=== PATIENT | female | born 1960 | race Caucasian/White ===

== ENCOUNTER 2017-08-14 16:10 | Emergency (ER) | payer MEDICARE, OTHER ==
[~2017-08-14] VITALS: Ht 165.1 cm; Wt 90.7 kg
[~2017-08-14 16:10] MED LIST: ACET120S PO; ALEN70 PO; APTIOM200 MG PO; ASCO500 PO; B Complex #11 EACH PO; B Complex1 EAC2 PO; BENTYL10 MG PO; BENZ100A PO; BIEST; C Complex1000 MG PO; CALCAVITDA PO; CALCIT950 PO; CHOL10002 PO; CYAN1000 PO; CYCL0.05OP BOTHEYES; CYCL10 PO; Calicum 500+D1 EACH PO; DHEA; DOCU100 PO; DULO60 PO; ERGO50000 PO; FLUO20; FLUT.05NI; Flonase 0.05% N16 GM; HYDACE10B PO; HYDACE5 PO; HYDMOR2 PO; HYOS0.375T PO; IBUP800 PO; KETO10 IM; LAMO100 PO; LAVAP17G PO; LORA10 PO; LORA10ER PO; NITR100CA PO; OXYACE5T PO; PHENY100ER; PHENY100ER PO; PHENY30ER PO; PROG; RISE35 PO; RXOXYACE PO; SOLIFENACIN 5 MG; TRAM50 PO; Treximet 85-501 EACH; Treximet 85-501 EACH PO; Triderm30 GM TOP; Triderm30 GM TP; Tylenol325 MG PO; Ultram50 MG PO; VITAMIN B PO; VITAMIN D PO; VITAMIN D22000 UNIT PO; VITAMIN D5000 UNI1 PO; Vitamin B Comple1 EA PO; Vitamin C1000 M1 PO; Zofran4 MG PO
== END 2017-08-14 17:25 | disposition home or self-care (01) ==
LOC: ER 16:10
DX: S93.402A Sprain of unspecified ligament of left ankle, initial encounter (principal); F32.9 Major depressive disorder, single episode, unspecified; Z87.891 Personal history of nicotine dependence; Z88.0 Allergy status to penicillin; Z88.5 Allergy status to narcotic agent; Z88.2 Allergy status to sulfonamides; Z88.1 Allergy status to other antibiotic agents; Z88.6 Allergy status to analgesic agent; Z79.899 Other long term (current) drug therapy; W01.0XXA Fall on same level from slipping, tripping and stumbling without subsequent striking against object, initial encounter; Y92.002 Bathroom of unspecified non-institutional (private) residence as the place of occurrence of the external cause
CPT/HCPCS: 73600; 99283

== ENCOUNTER → 2018-01-03 | Outpatient (CLI) | payer MEDICARE, OTHER ==
[2018-01-04 09:47] LABS: Candida species (DNA Probe) Negative (NEGATIVE); G. vaginalis (DNA Probe) Positive (NEGATIVE); T. vaginalis (DNA Probe) Negative (NEGATIVE)
== END | disposition home or self-care (01) ==
LOC: LAB SHORT 12:04 → LAB 12:04
PROVIDERS: Nurse Practitioner Obstetrics & Gynecology
DX: N76.0 Acute vaginitis (principal); R30.0 Dysuria
CPT/HCPCS: 87480; 87510; 87660

== ENCOUNTER → 2018-01-10 | Outpatient (CLI) | payer MEDICARE, OTHER ==
[~2018-01-10] MED LIST changes: +Monodox100 MG PO; +ROBITUSSIN COU237 ML PO
[2018-01-10 11:31] LABS: Source, Urine Clean Catch
[2018-01-10 13:33] LABS: Bilirubin, Urine Neg (Neg); Blood, Urine Neg (Neg); Glucose Qualitative, Urine Neg (Neg); Ketones, Urine Neg (Neg); Leukocyte Esterase, Urine 2+ (Neg); Nitrite, Urine Neg (Neg); Protein, Urine Neg (Neg); Specific Gravity, Urine 1.015 (1.003-1.022); Urobilinogen, Urine NORM (Normal)
[2018-01-10 13:53] LABS: Appearance, Urine Clear (Clear); Color, Urine Yellow (P-Yellow)
[2018-01-10 13:55] LABS: Bacteria Few /hpf; Red Blood Cells, Urine Not Seen /hpf (0-2); Squamous Epithelial Cells Few /hpf (Few)
== END | disposition home or self-care (01) ==
LOC: LAB 11:23 → LAB SHORT 11:23
PROVIDERS: Nurse Practitioner Obstetrics & Gynecology
DX: R30.0 Dysuria (principal)
CPT/HCPCS: 81001

== ENCOUNTER 2018-01-15 12:27 | Emergency (ER) | payer MEDICARE, OTHER ==
[~2018-01-15] VITALS: Ht 162.6 cm; Wt 93.0 kg
[~2018-01-15 12:27] MED LIST changes: -Monodox100 MG PO; -ROBITUSSIN COU237 ML PO
[2018-01-15] MEDS ORDERED: Monodox100 MG PO (13:52)
[2018-01-15] MEDS ORDERED: ROBITUSSIN COU237 ML PO (13:56)
== END 2018-01-15 14:03 | disposition home or self-care (01) ==
LOC: ER 12:27
DX: R05 Cough (principal); F32.9 Major depressive disorder, single episode, unspecified; J45.909 Unspecified asthma, uncomplicated; G40.909 Epilepsy, unspecified, not intractable, without status epilepticus; Z87.891 Personal history of nicotine dependence; Z88.0 Allergy status to penicillin; Z88.5 Allergy status to narcotic agent; Z91.040 Latex allergy status; Z88.8 Allergy status to other drugs, medicaments and biological substances; Z88.6 Allergy status to analgesic agent; Z88.2 Allergy status to sulfonamides; Z79.899 Other long term (current) drug therapy
CPT/HCPCS: 71046; 99283-25

== ENCOUNTER 2018-03-18 13:35 | Emergency (ER) | payer MEDICARE, OTHER ==
[~2018-03-18] VITALS: Ht 160 cm; Wt 95.2 kg
[~2018-03-18 13:35] MED LIST changes: +Monodox100 MG PO; +ROBITUSSIN COU237 ML PO
[2018-03-18 14:19] LABS: BASOPHILS ABSOLUTE AUTO 0.04 K/mm3 (0.00-0.23); BASOPHILS PERCENT AUTO 1 % (0-2); EOSINOPHILS ABSOLUTE AUTO 0.31 K/mm3 (0.00-0.68); EOSINOPHILS PERCENT AUTO 4 % (0-6); Hematocrit 42.7 % (33.0-51.0); Hemoglobin 14.4 g/dL (11.5-16.0); IMMATURE GRAN ABSOLUTE AUTO 0.02 K/mm3 (0.00-0.10); IMMATURE GRAN PERCENT AUTO 0 % (0-1); LYMPHOCYTES ABSOLUTE AUTO 1.78 K/mm3 (0.84-5.20); LYMPHOCYTES PERCENT AUTO 24 % (21-46); MONOCYTES ABSOLUTE AUTO 0.76 K/mm3 (0.16-1.47); MONOCYTES PERCENT AUTO 10 % (4-13); Mean Corpuscular HGB Conc 33.7 g/dL (31.5-36.5); Mean Corpuscular Volume 95 fL (80-100); Mean Platelet Volume 9.8 fL (9.1-12.4); NEUTROPHILS PERCENT AUTO 61 % (41-73); Platelet Count 298 K/mm3 (150-400); RDW Coefficient Variation 12.5 % (11.7-14.2); White Blood Cell Count 7.51 K/mm3 (4.00-11.30)
[2018-03-18 14:40] LABS: Alanine Aminotransfer (ALT/SGP 26 U/L (12-78); Albumin, Blood 3.8 g/dL (3.4-5.0); Albumin/Globulin Ratio 1.1 (0.8-1.8); Alk Phos 165 U/L (50-136); Anion Gap 8 mmol/L (6-16); Aspartate Aminotrans (AST/SGOT 19 U/L (12-37); Bilirubin, Total 0.2 mg/dL (0.1-1.0); Blood Urea Nitrogen 7 mg/dL (8-24); Bun/Creatinine Ratio 12.5 (12.0-20.0); CO2, Blood 25 mmol/L (21-32); Chloride, Blood 99 mmol/L (98-108); Creatinine, Blood 0.56 mg/dL (0.40-1.00); Globulin, Blood 3.5 g/dL (2.2-4.0); Glomerular Filtration Rate >60 (60-); Glucose, Blood 89 mg/dL (70-99); Potassium, Blood 3.9 mmol/L (3.5-5.5); Sodium, Blood 132 mmol/L (136-145); Total Protein, Blood 7.3 g/dL (6.4-8.2)
== END 2018-03-18 21:37 | disposition home or self-care (01) ==
LOC: ER 13:35
PROVIDERS: Emergency Medicine
DX: R05 Cough (principal); R06.02 Shortness of breath; R00.2 Palpitations; Z88.0 Allergy status to penicillin; Z88.5 Allergy status to narcotic agent; Z91.040 Latex allergy status; Z88.2 Allergy status to sulfonamides; Z88.1 Allergy status to other antibiotic agents; Z88.8 Allergy status to other drugs, medicaments and biological substances; Z79.899 Other long term (current) drug therapy; J45.909 Unspecified asthma, uncomplicated; F32.9 Major depressive disorder, single episode, unspecified; Z87.891 Personal history of nicotine dependence
CPT/HCPCS: 36415; 71046; 71260; 80053; 84484; 85025; 85379; 93005; 93010; 99284-25; Q9967

== ENCOUNTER → 2019-03-07 | Outpatient (CLI) | payer MEDICARE, OTHER ==
[2019-03-08 06:43] LABS: Candida species (DNA Probe) Negative (NEGATIVE); G. vaginalis (DNA Probe) Negative (NEGATIVE); T. vaginalis (DNA Probe) Negative (NEGATIVE)
== END | disposition home or self-care (01) ==
LOC: LAB SHORT 11:39 → LAB 11:39
PROVIDERS: Nurse Practitioner Obstetrics & Gynecology
DX: N76.0 Acute vaginitis (principal)
CPT/HCPCS: 87070; 87205; 87480; 87510; 87660

== ENCOUNTER → 2019-03-22 | Outpatient (CLI) | payer MEDICARE, OTHER | END | disposition home or self-care (01) | LOC: LAB SRC 15:10 → LAB SHORT 15:10 | DX: L50.9 Urticaria, unspecified (principal) | CPT/HCPCS: 87338 ==

== ENCOUNTER 2020-03-26 08:03 | Day surgery (SDC) | payer MEDICARE, OTHER ==
[~2020-03-26] VITALS: Ht 162.6 cm; Wt 88.4 kg
[~2020-03-26 08:03] MED LIST changes: +ALBU90OI6 INH; +APTIOM800 MG PO; +BREO ELLIPTA 11 EAC1; +LORA.5 PO; +PANT20 PO; +PROM25 PO; +SIMETHICONE125 MG PO; +SUCR1 PO; +TIZA4 PO; +TREXIMET 85-501 EACH PO; +Vistaril25 MG PO
[2020-03-26] MEDS ORDERED: CYAN1000I (08:32)
[2020-03-26] MEDS ORDERED: TRAM50 (08:32)
[2020-03-26] MEDS ORDERED: XYZAL2.5 MG/51 (08:32)
--- NOTE | 2020-03-26 10:14 | NUR ---
03/26/20 1014 Cadence Leiva LATE ENTRY---PATIENT RECEIVED ASSISTANCE FROM HER CAREGIVER IN GETTING DRESSED AND INTO THE WHEELCHAIR. PATIENT WAS STABLE ON DISCHARGE
== END 2020-03-26 10:05 | disposition home or self-care (01) ==
LOC: ORSCSDS 08:03
PROVIDERS: Surgery
PROC: 0DJD8ZZ Inspection of Lower Intestinal Tract, Via Natural or Artificial Opening Endoscopic (ICD-10-PCS; principal; 2020-03-26 09:15)
DX: R10.9 Unspecified abdominal pain (principal); R19.7 Diarrhea, unspecified; F32.9 Major depressive disorder, single episode, unspecified; R56.9 Unspecified convulsions; E66.01 Morbid (severe) obesity due to excess calories; Z68.34 Body mass index [BMI] 34.0-34.9, adult; Z79.899 Other long term (current) drug therapy
CPT/HCPCS: J0330; J0461; J2405; J2704; J7120

== ENCOUNTER 2020-04-13 07:02 | Emergency (ER) | payer MEDICARE, OTHER ==
[~2020-04-13] VITALS: Ht 157.5 cm; Wt 77.1 kg
[~2020-04-13 07:02] MED LIST changes: +CYAN1000I; +TRAM50; +XYZAL2.5 MG/51
[2020-04-13] MEDS ORDERED: DULO60 PO (07:17)
[2020-04-13] MEDS ORDERED: APTIOM200 MG PO (07:17)
[2020-04-13] MEDS ORDERED: CYCL10 PO (07:19)
[2020-04-13] MEDS ORDERED: XYZAL5 MG PO (07:19)
== END 2020-04-13 09:55 | disposition home or self-care (01) ==
LOC: ER 07:02
DX: M79.605 Pain in left leg (principal); F32.9 Major depressive disorder, single episode, unspecified; J45.909 Unspecified asthma, uncomplicated; G40.909 Epilepsy, unspecified, not intractable, without status epilepticus; Z88.0 Allergy status to penicillin; Z88.5 Allergy status to narcotic agent; Z88.1 Allergy status to other antibiotic agents; Z88.6 Allergy status to analgesic agent; Z88.2 Allergy status to sulfonamides; Z79.899 Other long term (current) drug therapy; Z91.040 Latex allergy status; Z86.718 Personal history of other venous thrombosis and embolism; Z87.891 Personal history of nicotine dependence
CPT/HCPCS: 93971; 96374; 99284-25; J3010

== ENCOUNTER 2020-06-21 16:19 | Emergency (ER) | payer MEDICARE, OTHER ==
[~2020-06-21] VITALS: Ht 165.1 cm; Wt 99.8 kg
[~2020-06-21 16:19] MED LIST changes: +XYZAL5 MG PO
[2020-06-21] MEDS ORDERED: NEURONTIN300 MG PO (19:39)
== END 2020-06-21 21:46 | disposition home or self-care (01) ==
LOC: ER 16:19
DX: S60.211A Contusion of right wrist, initial encounter (principal); S50.11XA Contusion of right forearm, initial encounter; S80.211A Abrasion, right knee, initial encounter; R07.81 Pleurodynia; J45.909 Unspecified asthma, uncomplicated; Z79.899 Other long term (current) drug therapy; Z88.0 Allergy status to penicillin; Z88.5 Allergy status to narcotic agent; Z91.040 Latex allergy status; Z88.1 Allergy status to other antibiotic agents; Z88.2 Allergy status to sulfonamides; Z88.6 Allergy status to analgesic agent; Z87.891 Personal history of nicotine dependence; W01.0XXA Fall on same level from slipping, tripping and stumbling without subsequent striking against object, initial encounter
CPT/HCPCS: 71046; 73110; 73564; 99283-25; A9270

== ENCOUNTER 2020-11-18 06:26 | Emergency (ER) | payer MEDICARE, OTHER ==
[~2020-11-18] VITALS: Ht 165.1 cm; Wt 81.7 kg
[~2020-11-18 06:26] MED LIST changes: +NEURONTIN300 MG PO
[2020-11-18] MEDS ORDERED: HYDR1TAB94 PO (09:11)
== END 2020-11-18 10:05 | disposition home or self-care (01) ==
LOC: ER 06:26
DX: S22.089A Unspecified fracture of T11-T12 vertebra, initial encounter for closed fracture (principal); G40.909 Epilepsy, unspecified, not intractable, without status epilepticus; Z88.0 Allergy status to penicillin; Z88.5 Allergy status to narcotic agent; Z91.040 Latex allergy status; Z88.6 Allergy status to analgesic agent; Z79.899 Other long term (current) drug therapy; Z87.891 Personal history of nicotine dependence; W06.XXXA Fall from bed, initial encounter
CPT/HCPCS: 72100; 99283-25; A9270

== ENCOUNTER 2020-11-22 13:13 | Emergency (ER) | payer MEDICARE, OTHER ==
[~2020-11-22] VITALS: Ht 165.1 cm; Wt 90.7 kg
[~2020-11-22 13:13] MED LIST changes: +HYDR1TAB94 PO
[2020-11-23] MEDS ORDERED: MELO7.5 PO (16:14)
[2020-11-23] MEDS ORDERED: SUCRALFATE PO (16:15)
[2020-11-23] MEDS ORDERED: AMITRIPTYLINE H25 MG PO (16:15)
[2020-11-23] MEDS ORDERED: ATOR10 PO (16:16)
== END 2020-11-22 14:40 | disposition home or self-care (01) ==
LOC: ER 13:13
DX: M54.5 Low back pain (principal); G89.29 Other chronic pain; Z53.21 Procedure and treatment not carried out due to patient leaving prior to being seen by health care provider; Z88.8 Allergy status to other drugs, medicaments and biological substances; Z88.0 Allergy status to penicillin; Z88.5 Allergy status to narcotic agent; Z88.2 Allergy status to sulfonamides; Z87.891 Personal history of nicotine dependence; Z79.899 Other long term (current) drug therapy; Z91.040 Latex allergy status
CPT/HCPCS: 99283; A9270

== ENCOUNTER 2020-11-23 15:35 | Emergency (ER) | payer MEDICARE, OTHER ==
[~2020-11-23] VITALS: Ht 165.1 cm; Wt 72.6 kg
[2020-11-23 16:01] LABS: BASOPHILS ABSOLUTE AUTO 0.03 K/mm3 (0.00-0.23); BASOPHILS PERCENT AUTO 0 % (0-2); EOSINOPHILS ABSOLUTE AUTO 0.31 K/mm3 (0.00-0.68); EOSINOPHILS PERCENT AUTO 3 % (0-6); Hematocrit 40.8 % (33.0-51.0); Hemoglobin 13.6 g/dL (11.5-16.0); IMMATURE GRAN ABSOLUTE AUTO 0.02 K/mm3 (0.00-0.10); IMMATURE GRAN PERCENT AUTO 0 % (0-1); LYMPHOCYTES ABSOLUTE AUTO 1.14 K/mm3 (0.84-5.20); LYMPHOCYTES PERCENT AUTO 13 % (21-46); MONOCYTES ABSOLUTE AUTO 0.71 K/mm3 (0.16-1.47); MONOCYTES PERCENT AUTO 8 % (4-13); Mean Corpuscular HGB 31.4 pg (26.0-34.0); Mean Corpuscular HGB Conc 33.3 g/dL (31.5-36.5); Mean Corpuscular Volume 94 fL (80-100); NEUTROPHILS PERCENT AUTO 76 % (41-73); Platelet Count 227 K/mm3 (150-400); RDW Coefficient Variation 12.1 % (11.7-14.2); RDW Standard Deviation 42.5 fL (35.1-46.3); Red Blood Cell Count 4.33 M/mm3 (3.80-5.20); White Blood Cell Count 9.01 K/mm3 (4.00-11.30)
[2020-11-23] MEDS ORDERED: MELO7.5 PO (16:14)
[2020-11-23] MEDS ORDERED: AMITRIPTYLINE H25 MG PO (16:15)
[2020-11-23] MEDS ORDERED: SUCRALFATE PO (16:15)
[2020-11-23] MEDS ORDERED: ATOR10 PO (16:16)
[2020-11-23 16:27] LABS: Alanine Aminotransfer (ALT/SGP 34 U/L (12-78); Albumin, Blood 3.7 g/dL (3.4-5.0); Albumin/Globulin Ratio 0.9 (0.8-1.8); Alk Phos 153 U/L (50-136); Anion Gap 6 mmol/L (6-16); Aspartate Aminotrans (AST/SGOT 20 U/L (12-37); Bilirubin, Total 0.3 mg/dL (0.1-1.0); Blood Urea Nitrogen 13 mg/dL (8-24); Bun/Creatinine Ratio 24.9 (12.0-20.0); CO2, Blood 28 mmol/L (21-32); Calcium, Blood 9.1 mg/dL (8.5-10.1); Chloride, Blood 107 mmol/L (98-108); Creatinine, Blood 0.52 mg/dL (0.40-1.00); Glomerular Filtration Rate >60 (60-); Glucose, Blood 104 mg/dL (70-99); Magnesium, Blood 2.1 mg/dL (1.6-2.4); Potassium, Blood 3.2 mmol/L (3.5-5.5); Sodium, Blood 141 mmol/L (136-145); Total Protein, Blood 7.7 g/dL (6.4-8.2); Troponin I <0.015 ng/mL (0.000-0.040)
== END 2020-11-23 17:48 | disposition home or self-care (01) ==
LOC: ER 15:35
PROVIDERS: Emergency Medicine
DX: R06.00 Dyspnea, unspecified (principal); M54.9 Dorsalgia, unspecified; Z79.899 Other long term (current) drug therapy
CPT/HCPCS: 36415; 71046; 80053; 83735; 84484; 85025; 93005; 93010; 99284-25

== ENCOUNTER 2020-11-27 10:40 | Emergency (ER) | payer MEDICARE, OTHER ==
[~2020-11-27] VITALS: Ht 157.5 cm; Wt 83.0 kg
[~2020-11-27 10:40] MED LIST changes: +AMITRIPTYLINE H25 MG PO; +ATOR10 PO; +MELO7.5 PO; +SUCRALFATE PO
== END 2020-11-27 13:54 | disposition home or self-care (01) ==
LOC: ER 10:40
DX: M54.5 Low back pain (principal); G89.29 Other chronic pain; Z88.0 Allergy status to penicillin; Z88.5 Allergy status to narcotic agent; Z91.040 Latex allergy status; Z88.2 Allergy status to sulfonamides; Z88.6 Allergy status to analgesic agent; Z88.8 Allergy status to other drugs, medicaments and biological substances; Z88.1 Allergy status to other antibiotic agents; Z87.891 Personal history of nicotine dependence; W18.11XA Fall from or off toilet without subsequent striking against object, initial encounter
CPT/HCPCS: 72080; 99283-25

== ENCOUNTER 2020-11-28 08:46 | Emergency (ER) | payer MEDICARE, OTHER ==
[~2020-11-28] VITALS: Ht 165.1 cm; Wt 104.3 kg
== END 2020-11-28 11:39 | disposition home or self-care (01) ==
LOC: ER 08:46
DX: M54.5 Low back pain (principal); G40.909 Epilepsy, unspecified, not intractable, without status epilepticus; Z88.5 Allergy status to narcotic agent; Z91.040 Latex allergy status; Z88.2 Allergy status to sulfonamides; Z88.8 Allergy status to other drugs, medicaments and biological substances; Z88.0 Allergy status to penicillin; Z79.899 Other long term (current) drug therapy; Z87.891 Personal history of nicotine dependence; W18.11XA Fall from or off toilet without subsequent striking against object, initial encounter
CPT/HCPCS: 96372; 99283-25; J1885

== ENCOUNTER 2020-11-29 14:41 | Emergency (ER) | payer MEDICARE, OTHER ==
[~2020-11-29] VITALS: Ht 160 cm; Wt 81.7 kg
== END 2020-11-29 15:14 | disposition home or self-care (01) ==
LOC: ER 14:41
DX: M54.9 Dorsalgia, unspecified (principal); Z79.899 Other long term (current) drug therapy; Z88.0 Allergy status to penicillin; Z91.040 Latex allergy status; Z88.2 Allergy status to sulfonamides; Z88.6 Allergy status to analgesic agent; Z88.1 Allergy status to other antibiotic agents; Z88.8 Allergy status to other drugs, medicaments and biological substances; Z88.5 Allergy status to narcotic agent; Z87.891 Personal history of nicotine dependence
CPT/HCPCS: 99283

== ENCOUNTER 2020-12-01 07:56 | Observation (INO) | payer MEDICARE, OTHER ==
[~2020-12-01] VITALS: Ht 162.6 cm; Wt 81.7 kg
[2020-12-01] MEDS ORDERED: HYDR1TAB94 PO (10:03)
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
[2020-12-01 16:43] LABS: C DIFFICILE DNA NEGATIVE (Negative)
--- NOTE | 2020-12-01 17:02 | NUR ---
PT DNR BAND ON THE LEFT ARM ; VERIFIED ORDER WITH TRANG GODINEZ
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
--- NOTE | 2020-12-02 07:38 | NUR ---
pt lay in bed awake a/ox3, pleasant and coopertive with care, follows commands well, complains of sun in her eyes, curtains adjusted, lungs are clear t/o, resp even and unlabored, no cough noted, hrr, no edema noted, ppp faint, cap refill <3sec, vs stable, afebrile, iv site is clear and patent, btx4, abd flat soft nontender, incont and bed orozco for voids, left hand is contracted, unable to move it, malka, call light in reach.
--- NOTE | 2020-12-02 11:46 | NUR ---
pt resting quietly, no acute changes. call light in reach.
--- NOTE | 2020-12-02 18:29 | NUR ---
SUMMARY NO ACUTE CHANGES NOTED. PO NORCO GIVEN FOR PAIN.PT REPOSITIONED TOLERATED. PT WAS ATTEMPTING TO LEAVE AMA TODAY. SHE WAS ENC TO STAY DUE TO HER CURRENT HEALTH STATUS & LIVING SITUATION. PT ADMITTED TO FEELING FRUSTRATED & FEELS THAT SHE HAS NOT BEEN INVOLVED WITH HER CARE DECSIONS MUCH SHE WOULD LIKE TO BE. SHE STATED THAT SHE FEELS HER CAREGIVER "MAKES ALL MT CHOICES FOR ME". PT WAS ENC TO SPEAK WITH THE PROVIDER IN THE AM AND VOICE HER CONCERNS, CHARGE NURSE ALSO NOTIFIED, REPORT WILL BE GIVEN TO NOC RN. CALL LIGHT IN REACH, BED IN LOW POSITION.
--- NOTE | 2020-12-03 04:45 | NUR ---
SHIFT SUMMARY A/OX3, PLEASANT AND COOPERATIVE WITH CARE. C/O BACK PAIN AND [place]UMBO, MEDICATED PER EMAR. Q2 REPOSITIONING. L. SIDED DEFECITS NOTED. VSS, NO ACUTE CHANGES AT THIS TIME. BED IN LOWEST POSITION WITH CALL LIGHT IN REACH. WILL CONTINUE TO MONITOR AND REPORT TO ONCOMING RN.
[2020-12-03 05:12] LABS: BASOPHILS ABSOLUTE AUTO 0.03 K/mm3 (0.00-0.23); BASOPHILS PERCENT AUTO 0 % (0-2); EOSINOPHILS ABSOLUTE AUTO 0.22 K/mm3 (0.00-0.68); EOSINOPHILS PERCENT AUTO 3 % (0-6); Hematocrit 39.8 % (33.0-51.0); Hemoglobin 13.2 g/dL (11.5-16.0); IMMATURE GRAN ABSOLUTE AUTO 0.04 K/mm3 (0.00-0.10); IMMATURE GRAN PERCENT AUTO 1 % (0-1); LYMPHOCYTES ABSOLUTE AUTO 1.97 K/mm3 (0.84-5.20); LYMPHOCYTES PERCENT AUTO 24 % (21-46); MONOCYTES PERCENT AUTO 10 % (4-13); Mean Corpuscular HGB 31.8 pg (26.0-34.0); Mean Corpuscular HGB Conc 33.2 g/dL (31.5-36.5); Mean Corpuscular Volume 96 fL (80-100); Mean Platelet Volume 10.3 fL (9.1-12.4); NEUTROPHILS ABSOLUTE AUTO 5.06 K/mm3 (1.96-9.15); NEUTROPHILS PERCENT AUTO 62 % (41-73); Platelet Count 284 K/mm3 (150-400); RDW Coefficient Variation 12.4 % (11.7-14.2); RDW Standard Deviation 43.5 fL (35.1-46.3); Red Blood Cell Count 4.15 M/mm3 (3.80-5.20); White Blood Cell Count 8.12 K/mm3 (4.00-11.30)
[2020-12-03 05:34] LABS: Anion Gap 6 mmol/L (6-16); Blood Urea Nitrogen 12 mg/dL (8-24); Bun/Creatinine Ratio 20.8 (12.0-20.0); CO2, Blood 27 mmol/L (21-32); Calcium, Blood 8.9 mg/dL (8.5-10.1); Chloride, Blood 105 mmol/L (98-108); Creatinine, Blood 0.58 mg/dL (0.40-1.00); Glomerular Filtration Rate >60 (60-); Glucose, Blood 104 mg/dL (70-99); Potassium, Blood 3.6 mmol/L (3.5-5.5); Sodium, Blood 138 mmol/L (136-145)
[2020-12-03] MEDS ORDERED: APTIOM800 MG PO (09:19)
--- NOTE | 2020-12-03 18:10 | NUR ---
SHIFT SUMMARY: NO ACUTE EVENTS. C/O BACK AND R RIBCAGE PAIN; MEDICATED PER EMAR WITH GOOD EFFECT. HOME SEIZURE MEDICATIONS ADDED TO EMAR AND VERIFIED BY PHARMACY. TWO PERSON STAND/PIVOT TRANSFER TO BSC OR CHAIR. UNABLE TO TOLERATE SITTING IN CHAIR FOR > 10 MINUTES TODAY, STATED HER BACK WAS HURTING TOO MUCH, IS WEARING ASPEN BRACE. PT/OT FOLLOWING. CAREGIVER VISITED FOR PART OF THE DAY.
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
--- NOTE | 2020-12-04 16:58 | NUR ---
DURING ASSESSMENT, IV SALINE WILL NOT FLUSH.
--- NOTE | 2020-12-04 18:12 | NUR ---
SHIFT SUMMARY: NO ACUTE EVENTS. C/O PAIN IN BACK AND R RIBCAGE; MEDICATED PER EMAR WITH SOME RELIEF. IN CHAIR X 3, TOLERATED WELL. FRIEND OR CG BROUGHT HER LEG BRACES FOR MORE MOBILITY, COOPERATIVE WITH PT AND OT. GETTING UP TO BSC OFTEN WITH ONE PERSON ASSIST. TOLERATING PO INTAKE.
--- NOTE | 2020-12-05 03:07 | NUR ---
MORE SLEEP TONIGHT, MEDICATED FOR PAIN ONCE. COMPLAINTS MOSTLY OF LOW BACK PAIN. sTILL COMPLAINING OF INTERMITTANT "ALL OVER ITCHING" . POSSIBLY NEEDING HYPERALLERGENIC SHEETS. PT STATES THIS HAPPENS AT HOME FOR NO APPARENTL REASON.
[2020-12-05 04:47] LABS: BASOPHILS ABSOLUTE AUTO 0.04 K/mm3 (0.00-0.23); BASOPHILS PERCENT AUTO 1 % (0-2); EOSINOPHILS ABSOLUTE AUTO 0.53 K/mm3 (0.00-0.68); EOSINOPHILS PERCENT AUTO 6 % (0-6); Hematocrit 36.8 % (33.0-51.0); Hemoglobin 12.3 g/dL (11.5-16.0); IMMATURE GRAN ABSOLUTE AUTO 0.02 K/mm3 (0.00-0.10); IMMATURE GRAN PERCENT AUTO 0 % (0-1); LYMPHOCYTES ABSOLUTE AUTO 2.59 K/mm3 (0.84-5.20); LYMPHOCYTES PERCENT AUTO 30 % (21-46); MONOCYTES ABSOLUTE AUTO 0.82 K/mm3 (0.16-1.47); MONOCYTES PERCENT AUTO 9 % (4-13); Mean Corpuscular HGB 31.8 pg (26.0-34.0); Mean Corpuscular HGB Conc 33.4 g/dL (31.5-36.5); Mean Corpuscular Volume 95 fL (80-100); Mean Platelet Volume 10.4 fL (9.1-12.4); NEUTROPHILS ABSOLUTE AUTO 4.71 K/mm3 (1.96-9.15); NEUTROPHILS PERCENT AUTO 54 % (41-73); Platelet Count 261 K/mm3 (150-400); RDW Coefficient Variation 12.2 % (11.7-14.2); RDW Standard Deviation 42.2 fL (35.1-46.3); Red Blood Cell Count 3.87 M/mm3 (3.80-5.20); White Blood Cell Count 8.71 K/mm3 (4.00-11.30)
[2020-12-05 05:16] LABS: Anion Gap 5 mmol/L (6-16); Blood Urea Nitrogen 18 mg/dL (8-24); Bun/Creatinine Ratio 23.4 (12.0-20.0); CO2, Blood 27 mmol/L (21-32); Calcium, Blood 8.5 mg/dL (8.5-10.1); Chloride, Blood 104 mmol/L (98-108); Creatinine, Blood 0.77 mg/dL (0.40-1.00); Glomerular Filtration Rate >60 (60-); Glucose, Blood 93 mg/dL (70-99); Magnesium, Blood 2.4 mg/dL (1.6-2.4); Phosphorus, Blood 4.2 mg/dL (2.5-4.9); Sodium, Blood 136 mmol/L (136-145)
[2020-12-05] MEDS ORDERED: Acetaminophen325 M1 PO (12:09)
[2020-12-05] MEDS ORDERED: CALCITONIN-SAL3.7 M5 (12:10)
[2020-12-05] MEDS ORDERED: Senna-Extra17.2 MG PO (12:11)
--- NOTE | 2020-12-05 15:39 | NUR ---
DISCHARGE SUMMARY PT AxOx4 WITH OCCASIONAL MILD CONFUSION. PT IS DISCHARGING HOME TODAY WITH CAREGIVER AND HOME HEALTH. PATIENT WORKED WITH PT AND OT TODAY. PT REPORTED BACK PAIN T/O THIS SHIFT. MEDICATED PER EMAR AND OFFERED ICE WITH REPORTED RELIEF. VITAL SIGNS REVIEWED. DC INSTRUCTIONS DISCUSSED WITH PT AND CAREGIVER (THEA SERRATO), INCLUDING FOLLOW UP APPOINTMENTS, DC MEDICATIONS, PT EDUCATION AND INFO ON HOME HEALTH. PT AND CAREGIVER VERBALIZE UNDERSTANDING AND DENY ANY FURTHER QUESTIONS/CONCERNS AT THIS TIME. PT SAFELY TRANSFERRED AND ESCORTED OUT VIA WC BY THIS RN AND CAREGIVER.
== END 2020-12-05 15:40 | disposition home health service (06) ==
LOC: ER 07:56 → MEDS 07:57
PROVIDERS: Family Medicine; ADMIT Internal Medicine
DX: S22.088A Other fracture of T11-T12 vertebra, initial encounter for closed fracture (principal); W19.XXXA Unspecified fall, initial encounter; R53.1 Weakness; G43.109 Migraine with aura, not intractable, without status migrainosus; J45.909 Unspecified asthma, uncomplicated; G40.909 Epilepsy, unspecified, not intractable, without status epilepticus; K21.9 Gastro-esophageal reflux disease without esophagitis; E78.5 Hyperlipidemia, unspecified; Z88.5 Allergy status to narcotic agent; Z88.0 Allergy status to penicillin; Z88.2 Allergy status to sulfonamides; Z88.8 Allergy status to other drugs, medicaments and biological substances; Z88.1 Allergy status to other antibiotic agents; Z91.040 Latex allergy status; Z87.891 Personal history of nicotine dependence; Z87.828 Personal history of other (healed) physical injury and trauma
CPT/HCPCS: 36415; 80048; 83735; 84100; 85025; 87493; 96372; 96374; 96375; 97116-CQ; 97162; 97166; 97530; 97530-CQ; 97535; 99285-25; A9270; G0378; J1200; J1650; J1885; J2405

== ENCOUNTER 2020-12-14 15:13 | Emergency (ER) | payer MEDICARE, OTHER ==
[~2020-12-14] VITALS: Ht 165.1 cm; Wt 81.7 kg
[~2020-12-14 15:13] MED LIST changes: +Acetaminophen325 M1 PO; +CALCITONIN-SAL3.7 M5; +Senna-Extra17.2 MG PO
== END 2020-12-14 16:30 | disposition home or self-care (01) ==
LOC: ER 15:13
DX: S80.12XA Contusion of left lower leg, initial encounter (principal); Z88.0 Allergy status to penicillin; Z88.5 Allergy status to narcotic agent; Z91.040 Latex allergy status; Z88.1 Allergy status to other antibiotic agents; Z88.6 Allergy status to analgesic agent; Z79.899 Other long term (current) drug therapy; Z87.891 Personal history of nicotine dependence; W18.30XA Fall on same level, unspecified, initial encounter; Y92.009 Unspecified place in unspecified non-institutional (private) residence as the place of occurrence of the external cause
CPT/HCPCS: 73590; 99283-25; A9270

== ENCOUNTER → 2021-02-24 | Outpatient (CLI) | payer MEDICARE, OTHER | LOC: LAB SHORT 16:00 → LAB 16:00 | DX: L03.032 Cellulitis of left toe (principal); Z88.0 Allergy status to penicillin; Z88.1 Allergy status to other antibiotic agents; Z88.2 Allergy status to sulfonamides; Z88.5 Allergy status to narcotic agent; Z88.6 Allergy status to analgesic agent; Z88.8 Allergy status to other drugs, medicaments and biological substances; Z91.040 Latex allergy status | CPT/HCPCS: 87070; 87077; 87186; 87205 ==

== ENCOUNTER 2021-03-06 18:01 | Emergency (ER) | payer MEDICARE, OTHER ==
[~2021-03-06] VITALS: Ht 165.1 cm; Wt 81.7 kg
== END 2021-03-06 20:26 | disposition home or self-care (01) ==
LOC: ER 18:01
DX: G89.29 Other chronic pain (principal); M54.6 Pain in thoracic spine; M54.5 Low back pain; S22.089D Unspecified fracture of T11-T12 vertebra, subsequent encounter for fracture with routine healing; G81.94 Hemiplegia, unspecified affecting left nondominant side; J45.909 Unspecified asthma, uncomplicated; G40.909 Epilepsy, unspecified, not intractable, without status epilepticus; Z88.0 Allergy status to penicillin; Z88.5 Allergy status to narcotic agent; Z91.040 Latex allergy status; Z88.8 Allergy status to other drugs, medicaments and biological substances; Z88.2 Allergy status to sulfonamides; Z88.6 Allergy status to analgesic agent; Z88.1 Allergy status to other antibiotic agents; Z79.899 Other long term (current) drug therapy; Z86.718 Personal history of other venous thrombosis and embolism; W18.30XA Fall on same level, unspecified, initial encounter; Y92.009 Unspecified place in unspecified non-institutional (private) residence as the place of occurrence of the external cause
CPT/HCPCS: 70450; 72070; 72100; 72125; 99284-25; A9270

== ENCOUNTER 2021-03-09 18:29 | Emergency (ER) | payer MEDICARE, OTHER ==
[~2021-03-09] VITALS: Ht 165.1 cm; Wt 83.5 kg
[2021-03-09 19:29] LABS: BASOPHILS ABSOLUTE AUTO 0.04 K/mm3 (0.00-0.23); BASOPHILS PERCENT AUTO 0 % (0-2); EOSINOPHILS PERCENT AUTO 1 % (0-6); Hematocrit 44.3 % (33.0-51.0); Hemoglobin 14.8 g/dL (11.5-16.0); IMMATURE GRAN ABSOLUTE AUTO 0.07 K/mm3 (0.00-0.10); IMMATURE GRAN PERCENT AUTO 1 % (0-1); LYMPHOCYTES ABSOLUTE AUTO 1.53 K/mm3 (0.84-5.20); LYMPHOCYTES PERCENT AUTO 14 % (21-46); MONOCYTES ABSOLUTE AUTO 0.99 K/mm3 (0.16-1.47); MONOCYTES PERCENT AUTO 9 % (4-13); Mean Corpuscular HGB 31.4 pg (26.0-34.0); Mean Corpuscular HGB Conc 33.4 g/dL (31.5-36.5); Mean Corpuscular Volume 94 fL (80-100); Mean Platelet Volume 10.5 fL (9.1-12.4); NEUTROPHILS ABSOLUTE AUTO 8.12 K/mm3 (1.96-9.15); NEUTROPHILS PERCENT AUTO 75 % (41-73); Platelet Count 231 K/mm3 (150-400); RDW Coefficient Variation 13.2 % (11.7-14.2); RDW Standard Deviation 45.6 fL (35.1-46.3); Red Blood Cell Count 4.71 M/mm3 (3.80-5.20); White Blood Cell Count 10.85 K/mm3 (4.00-11.30)
[2021-03-09 19:40] LABS: Alanine Aminotransfer (ALT/SGP 26 U/L (12-78); Albumin, Blood 3.7 g/dL (3.4-5.0); Albumin/Globulin Ratio 1.1 (0.8-1.8); Alk Phos 131 U/L (50-136); Anion Gap 6 mmol/L (6-16); Aspartate Aminotrans (AST/SGOT 15 U/L (12-37); Bilirubin, Total 0.2 mg/dL (0.1-1.0); Blood Urea Nitrogen 17 mg/dL (8-24); Bun/Creatinine Ratio 25.6 (12.0-20.0); CO2, Blood 26 mmol/L (21-32); Calcium, Blood 9.2 mg/dL (8.5-10.1); Chloride, Blood 109 mmol/L (98-108); Creatinine, Blood 0.67 mg/dL (0.40-1.00); Globulin, Blood 3.5 g/dL (2.2-4.0); Glomerular Filtration Rate >60 (60-); Glucose, Blood 117 mg/dL (70-99); Potassium, Blood 3.3 mmol/L (3.5-5.5); Sodium, Blood 141 mmol/L (136-145); Total Protein, Blood 7.2 g/dL (6.4-8.2)
[2021-03-09 20:51] LABS: Troponin I <0.015 ng/mL (0.000-0.040)
== END 2021-03-09 22:39 | disposition home or self-care (01) ==
LOC: ER 18:29
PROVIDERS: Emergency Medicine
DX: R55 Syncope and collapse (principal); G40.909 Epilepsy, unspecified, not intractable, without status epilepticus; F17.210 Nicotine dependence, cigarettes, uncomplicated; Z88.0 Allergy status to penicillin; Z88.5 Allergy status to narcotic agent; Z91.040 Latex allergy status; Z88.2 Allergy status to sulfonamides; Z88.6 Allergy status to analgesic agent; Z88.1 Allergy status to other antibiotic agents; Z88.8 Allergy status to other drugs, medicaments and biological substances; Z79.899 Other long term (current) drug therapy; Z86.718 Personal history of other venous thrombosis and embolism
CPT/HCPCS: 36415; 71100; 73590; 73620; 80053; 84484; 85025; 93005; 93010; 99284-25; A9270

== ENCOUNTER → 2021-06-05 | Outpatient (CLI) | payer MEDICARE, OTHER ==
[~2021-06-05] MED LIST changes: +ASCOMP WITH CO1 EACH PO; +BICARSIM FORTE125 MG PO; +C COMPLEX1000 M1 PO; +CEPH500 PO; +ELLURA200 MG PO; +LORA2 PO; +MECL25 PO; +NARCAN4 M1; +Norco 7.5-3251 EACH PO; +Oxcarbazepine300 MG PO; +TRIDERM28.4 GM TOP; +Vitamin D1000 UNI1 PO
[2021-06-12 10:10] LABS: HPV 16 Negative (Negative); HPV 18 Negative (Negative); HPV OTHER HR TYPES Negative (Negative)
== END | disposition home or self-care (01) ==
LOC: LAB SHORT 16:45 → PLD 16:45
PROVIDERS: Nurse Practitioner Family
DX: Z11.51 Encounter for screening for human papillomavirus (HPV) (principal); Z12.4 Encounter for screening for malignant neoplasm of cervix
CPT/HCPCS: 87624; G0123

== ENCOUNTER 2021-06-15 13:06 | Emergency (ER) | payer MEDICARE, OTHER ==
[~2021-06-15] VITALS: Ht 165.1 cm; Wt 77.1 kg
[~2021-06-15 13:06] MED LIST changes: -ASCOMP WITH CO1 EACH PO; -BICARSIM FORTE125 MG PO; -C COMPLEX1000 M1 PO; -CEPH500 PO; -ELLURA200 MG PO; -LORA2 PO; -MECL25 PO; -NARCAN4 M1; -Norco 7.5-3251 EACH PO; -Oxcarbazepine300 MG PO; -TRIDERM28.4 GM TOP; -Vitamin D1000 UNI1 PO
[2021-06-15 13:45] LABS: BASOPHILS ABSOLUTE AUTO 0.03 K/mm3 (0.00-0.23); BASOPHILS PERCENT AUTO 0 % (0-2); EOSINOPHILS ABSOLUTE AUTO 0.08 K/mm3 (0.00-0.68); EOSINOPHILS PERCENT AUTO 1 % (0-6); Hematocrit 42.4 % (33.0-51.0); Hemoglobin 14.5 g/dL (11.5-16.0); IMMATURE GRAN ABSOLUTE AUTO 0.02 K/mm3 (0.00-0.10); IMMATURE GRAN PERCENT AUTO 0 % (0-1); LYMPHOCYTES ABSOLUTE AUTO 1.92 K/mm3 (0.84-5.20); LYMPHOCYTES PERCENT AUTO 28 % (21-46); MONOCYTES ABSOLUTE AUTO 0.63 K/mm3 (0.16-1.47); MONOCYTES PERCENT AUTO 9 % (4-13); Mean Corpuscular HGB 32.8 pg (26.0-34.0); Mean Corpuscular HGB Conc 34.2 g/dL (31.5-36.5); Mean Corpuscular Volume 96 fL (80-100); Mean Platelet Volume 10.2 fL (9.1-12.4); NEUTROPHILS ABSOLUTE AUTO 4.31 K/mm3 (1.96-9.15); NEUTROPHILS PERCENT AUTO 62 % (41-73); Platelet Count 209 K/mm3 (150-400); RDW Coefficient Variation 12.1 % (11.7-14.2); RDW Standard Deviation 42.3 fL (35.1-46.3); Red Blood Cell Count 4.42 M/mm3 (3.80-5.20); White Blood Cell Count 6.99 K/mm3 (4.00-11.30)
[2021-06-15 14:09] LABS: Alanine Aminotransfer (ALT/SGP 31 U/L (12-78); Albumin, Blood 3.6 g/dL (3.4-5.0); Albumin/Globulin Ratio 1.1 (0.8-1.8); Alk Phos 110 U/L (50-136); Anion Gap 7 mmol/L (6-16); Aspartate Aminotrans (AST/SGOT 19 U/L (12-37); Bilirubin, Total 0.3 mg/dL (0.1-1.0); Blood Urea Nitrogen 14 mg/dL (8-24); Bun/Creatinine Ratio 22.4 (12.0-20.0); CO2, Blood 26 mmol/L (21-32); Calcium, Blood 9.4 mg/dL (8.5-10.1); Chloride, Blood 105 mmol/L (98-108); Creatinine, Blood 0.63 mg/dL (0.40-1.00); Globulin, Blood 3.4 g/dL (2.2-4.0); Glomerular Filtration Rate >60 (60-); Glucose, Blood 123 mg/dL (70-99); Potassium, Blood 3.6 mmol/L (3.5-5.5); Sodium, Blood 138 mmol/L (136-145); Troponin I <0.015 ng/mL (0.000-0.040)
[2021-06-15] MEDS ORDERED: C COMPLEX1000 M1 PO (14:09)
[2021-06-15 14:10] LABS: Source, Urine Catheter
[2021-06-15] MEDS ORDERED: BENZ100A PO (14:10)
[2021-06-15] MEDS ORDERED: Vitamin D1000 UNI1 PO (14:11)
[2021-06-15] MEDS ORDERED: ASCOMP WITH CO1 EACH PO (14:12)
[2021-06-15 14:14] LABS: Bilirubin, Urine Neg (Neg); Blood, Urine Neg (Neg); Color, Urine Amber (P-Yellow); Glucose Qualitative, Urine Neg (Neg); Ketones, Urine 1+ (Neg); Leukocyte Esterase, Urine 2+ (Neg); Nitrite, Urine Neg (Neg); Protein, Urine 2+ (Neg); Specific Gravity, Urine 1.025 (1.003-1.022); Urobilinogen, Urine 1+ (Normal)
[2021-06-15 14:15] LABS: Appearance, Urine Hazy (Clear)
[2021-06-15] MEDS ORDERED: CYCL10 PO (14:15)
[2021-06-15] MEDS ORDERED: ELLURA200 MG PO (14:15)
[2021-06-15] MEDS ORDERED: DOCU100 PO (14:16)
[2021-06-15] MEDS ORDERED: Norco 7.5-3251 EACH PO (14:17)
[2021-06-15] MEDS ORDERED: LORA2 PO (14:18)
[2021-06-15] MEDS ORDERED: MECL25 PO (14:18)
[2021-06-15] MEDS ORDERED: NARCAN4 M1 (14:21)
[2021-06-15] MEDS ORDERED: Oxcarbazepine300 MG PO (14:21)
[2021-06-15] MEDS ORDERED: PROM25 PO (14:25)
[2021-06-15] MEDS ORDERED: BICARSIM FORTE125 MG PO (14:27)
[2021-06-15 14:30] LABS: Bacteria Many /hpf; Calcium Oxalate Crystals Mod /hpf; Mucus Mod (0-Heavy)
[2021-06-15] MEDS ORDERED: SUCR1 PO (14:30)
[2021-06-15 14:31] LABS: Red Blood Cells, Urine Not Seen /hpf (0-2); Squamous Epithelial Cells Few /hpf (Few)
[2021-06-15] MEDS ORDERED: TRIDERM28.4 GM TOP (14:31)
[2021-06-15] MEDS ORDERED: Vitamin B Comple1 EA PO (14:32)
[2021-06-15] MEDS ORDERED: CEPH500 PO (15:46)
== END 2021-06-15 16:25 | disposition home or self-care (01) ==
LOC: ER 13:06
PROVIDERS: Physician Assistant
DX: N39.0 Urinary tract infection, site not specified (principal); J45.909 Unspecified asthma, uncomplicated; G40.909 Epilepsy, unspecified, not intractable, without status epilepticus; Z79.899 Other long term (current) drug therapy; Z88.6 Allergy status to analgesic agent; Z88.5 Allergy status to narcotic agent; Z88.2 Allergy status to sulfonamides; Z88.0 Allergy status to penicillin
CPT/HCPCS: 36415; 70450; 80053; 81001; 84484; 85025; 87086; 93005; 93010; 96365; 99284-25; A9270; J0696; J7030

== ENCOUNTER → 2021-07-22 | Outpatient (CLI) | payer MEDICARE, OTHER ==
[~2021-07-22] MED LIST changes: +ASCOMP WITH CO1 EACH PO; +BICARSIM FORTE125 MG PO; +C COMPLEX1000 M1 PO; +CEPH500 PO; +ELLURA200 MG PO; +LORA2 PO; +MECL25 PO; +NARCAN4 M1; +Norco 7.5-3251 EACH PO; +Oxcarbazepine300 MG PO; +TRIDERM28.4 GM TOP; +Vitamin D1000 UNI1 PO
== END | disposition home or self-care (01) ==
LOC: LAB SHORT 11:46
DX: R30.0 Dysuria (principal)
CPT/HCPCS: 87086

== ENCOUNTER 2021-08-22 17:38 | Emergency (ER) | payer MEDICARE, OTHER ==
[~2021-08-22] VITALS: Ht 162.6 cm; Wt 68.0 kg
[2021-08-22 18:05] LABS: BASOPHILS ABSOLUTE AUTO 0.02 K/mm3 (0.00-0.23); BASOPHILS PERCENT AUTO 0 % (0-2); EOSINOPHILS ABSOLUTE AUTO 0.07 K/mm3 (0.00-0.68); EOSINOPHILS PERCENT AUTO 1 % (0-6); Hematocrit 40.5 % (33.0-51.0); Hemoglobin 13.5 g/dL (11.5-16.0); IMMATURE GRAN ABSOLUTE AUTO 0.04 K/mm3 (0.00-0.10); IMMATURE GRAN PERCENT AUTO 1 % (0-1); LYMPHOCYTES ABSOLUTE AUTO 1.94 K/mm3 (0.84-5.20); LYMPHOCYTES PERCENT AUTO 31 % (21-46); MONOCYTES ABSOLUTE AUTO 0.73 K/mm3 (0.16-1.47); MONOCYTES PERCENT AUTO 12 % (4-13); Mean Corpuscular HGB 31.5 pg (26.0-34.0); Mean Corpuscular HGB Conc 33.3 g/dL (31.5-36.5); Mean Corpuscular Volume 95 fL (80-100); Mean Platelet Volume 9.5 fL (9.1-12.4); NEUTROPHILS ABSOLUTE AUTO 3.54 K/mm3 (1.96-9.15); NEUTROPHILS PERCENT AUTO 56 % (41-73); Platelet Count 333 K/mm3 (150-400); RDW Coefficient Variation 12.3 % (11.7-14.2); RDW Standard Deviation 42.5 fL (35.1-46.3); Red Blood Cell Count 4.28 M/mm3 (3.80-5.20); White Blood Cell Count 6.34 K/mm3 (4.00-11.30)
[2021-08-22 18:22] LABS: Alanine Aminotransfer (ALT/SGP 25 U/L (12-78); Albumin, Blood 3.1 g/dL (3.4-5.0); Albumin/Globulin Ratio 0.8 (0.8-1.8); Alk Phos 114 U/L (50-136); Anion Gap 7 mmol/L (6-16); Aspartate Aminotrans (AST/SGOT 13 U/L (12-37); Bilirubin, Total 0.4 mg/dL (0.1-1.0); Blood Urea Nitrogen 18 mg/dL (8-24); Bun/Creatinine Ratio 38.8 (12.0-20.0); CO2, Blood 27 mmol/L (21-32); Calcium, Blood 9.1 mg/dL (8.5-10.1); Chloride, Blood 106 mmol/L (98-108); Creatinine, Blood 0.46 mg/dL (0.40-1.00); Globulin, Blood 4.1 g/dL (2.2-4.0); Glomerular Filtration Rate >60 (60-); Glucose, Blood 132 mg/dL (70-99); Potassium, Blood 3.3 mmol/L (3.5-5.5); Sodium, Blood 140 mmol/L (136-145); Total Protein, Blood 7.2 g/dL (6.4-8.2)
[2021-08-22 20:15] LABS: Source, Urine Clean Catch
[2021-08-22 20:24] LABS: Appearance, Urine Hazy (Clear); Bilirubin, Urine Neg (Neg); Blood, Urine Neg (Neg); Color, Urine Amber (P-Yellow); Glucose Qualitative, Urine Neg (Neg); Ketones, Urine 2+ (Neg); Leukocyte Esterase, Urine 1+ (Neg); Nitrite, Urine Neg (Neg); Protein, Urine 2+ (Neg); Specific Gravity, Urine 1.015 (1.003-1.022); Urobilinogen, Urine 1+ (Normal)
[2021-08-22 20:37] LABS: Red Blood Cells, Urine Not Seen /hpf (0-2); Squamous Epithelial Cells Few /hpf (Few)
[2021-08-22 20:38] LABS: Amorphous Mod (0-Heavy); Bacteria Mod /hpf
== END 2021-08-22 21:04 | disposition home or self-care (01) ==
LOC: ER 17:38
PROVIDERS: Physician Assistant
DX: R10.30 Lower abdominal pain, unspecified (principal); J45.909 Unspecified asthma, uncomplicated; G40.909 Epilepsy, unspecified, not intractable, without status epilepticus; Z86.718 Personal history of other venous thrombosis and embolism; Z88.0 Allergy status to penicillin; Z88.5 Allergy status to narcotic agent; Z91.040 Latex allergy status; Z88.2 Allergy status to sulfonamides; Z88.6 Allergy status to analgesic agent; Z88.1 Allergy status to other antibiotic agents; Z88.8 Allergy status to other drugs, medicaments and biological substances; Z79.899 Other long term (current) drug therapy
CPT/HCPCS: 36415; 51701; 80053; 81001; 85025; 87086; 99284-25

== ENCOUNTER 2021-08-23 11:42 | Emergency (ER) | payer MEDICARE, OTHER ==
[~2021-08-23] VITALS: Ht 167.6 cm; Wt 81.7 kg
== END 2021-08-23 13:59 | disposition home or self-care (01) ==
LOC: ER 11:42
DX: S93.402A Sprain of unspecified ligament of left ankle, initial encounter (principal); Z79.899 Other long term (current) drug therapy; Z88.0 Allergy status to penicillin; Z88.5 Allergy status to narcotic agent; Z88.8 Allergy status to other drugs, medicaments and biological substances; W18.30XA Fall on same level, unspecified, initial encounter
CPT/HCPCS: 99283

== ENCOUNTER 2021-08-25 13:13 | Emergency (ER) | payer MEDICARE, OTHER ==
[~2021-08-25] VITALS: Ht 165.1 cm; Wt 81.7 kg
[2021-08-25 14:26] LABS: BASOPHILS ABSOLUTE AUTO 0.02 K/mm3 (0.00-0.23); BASOPHILS PERCENT AUTO 0 % (0-2); EOSINOPHILS ABSOLUTE AUTO 0.11 K/mm3 (0.00-0.68); EOSINOPHILS PERCENT AUTO 2 % (0-6); Hematocrit 44.4 % (33.0-51.0); Hemoglobin 14.7 g/dL (11.5-16.0); IMMATURE GRAN ABSOLUTE AUTO 0.06 K/mm3 (0.00-0.10); IMMATURE GRAN PERCENT AUTO 1 % (0-1); LYMPHOCYTES ABSOLUTE AUTO 2.45 K/mm3 (0.84-5.20); LYMPHOCYTES PERCENT AUTO 37 % (21-46); MONOCYTES ABSOLUTE AUTO 0.69 K/mm3 (0.16-1.47); MONOCYTES PERCENT AUTO 10 % (4-13); Mean Corpuscular HGB 31.6 pg (26.0-34.0); Mean Corpuscular HGB Conc 33.1 g/dL (31.5-36.5); Mean Corpuscular Volume 96 fL (80-100); Mean Platelet Volume 9.2 fL (9.1-12.4); NEUTROPHILS ABSOLUTE AUTO 3.31 K/mm3 (1.96-9.15); NEUTROPHILS PERCENT AUTO 50 % (41-73); Platelet Count 446 K/mm3 (150-400); RDW Coefficient Variation 12.6 % (11.7-14.2); RDW Standard Deviation 43.5 fL (35.1-46.3); Red Blood Cell Count 4.65 M/mm3 (3.80-5.20); White Blood Cell Count 6.64 K/mm3 (4.00-11.30)
[2021-08-25 14:45] LABS: Alanine Aminotransfer (ALT/SGP 20 U/L (12-78); Albumin, Blood 3.3 g/dL (3.4-5.0); Albumin/Globulin Ratio 0.8 (0.8-1.8); Alk Phos 122 U/L (50-136); Anion Gap 8 mmol/L (6-16); Aspartate Aminotrans (AST/SGOT 13 U/L (12-37); Bilirubin, Total 0.3 mg/dL (0.1-1.0); Blood Urea Nitrogen 15 mg/dL (8-24); CO2, Blood 28 mmol/L (21-32); Chloride, Blood 105 mmol/L (98-108); Creatinine, Blood 0.58 mg/dL (0.40-1.00); Globulin, Blood 3.9 g/dL (2.2-4.0); Glomerular Filtration Rate >60 (60-); Glucose, Blood 103 mg/dL (70-99); Potassium, Blood 3.7 mmol/L (3.5-5.5); Sodium, Blood 141 mmol/L (136-145); Total Protein, Blood 7.2 g/dL (6.4-8.2)
[2021-08-25] MEDS ORDERED: PROM25 PO (15:33)
[2021-08-25] MEDS ORDERED: DICY20 PO (15:33)
== END 2021-08-25 16:24 | disposition home or self-care (01) ==
LOC: ER 13:13
PROVIDERS: Emergency Medicine
DX: R10.30 Lower abdominal pain, unspecified (principal)
CPT/HCPCS: 36415; 74177; 80053; 83690; 84484; 85025; 93005; 93010; 96374; 99284-25; J2405; J7030; Q9967

== ENCOUNTER 2021-09-01 15:15 | Emergency (ER) | payer MEDICARE, OTHER ==
[~2021-09-01] VITALS: Ht 160 cm; Wt 54.4 kg
[~2021-09-01 15:15] MED LIST changes: +DICY20 PO
[2021-09-01 15:52] LABS: BASOPHILS ABSOLUTE AUTO 0.02 K/mm3 (0.00-0.23); BASOPHILS PERCENT AUTO 0 % (0-2); EOSINOPHILS ABSOLUTE AUTO 0.03 K/mm3 (0.00-0.68); EOSINOPHILS PERCENT AUTO 1 % (0-6); Hematocrit 45.2 % (33.0-51.0); Hemoglobin 14.9 g/dL (11.5-16.0); IMMATURE GRAN ABSOLUTE AUTO 0.01 K/mm3 (0.00-0.10); IMMATURE GRAN PERCENT AUTO 0 % (0-1); LYMPHOCYTES ABSOLUTE AUTO 2.14 K/mm3 (0.84-5.20); LYMPHOCYTES PERCENT AUTO 42 % (21-46); MONOCYTES ABSOLUTE AUTO 0.54 K/mm3 (0.16-1.47); MONOCYTES PERCENT AUTO 11 % (4-13); Mean Corpuscular HGB 31.6 pg (26.0-34.0); Mean Corpuscular Volume 96 fL (80-100); Mean Platelet Volume 10.1 fL (9.1-12.4); NEUTROPHILS ABSOLUTE AUTO 2.31 K/mm3 (1.96-9.15); NEUTROPHILS PERCENT AUTO 46 % (41-73); Platelet Count 286 K/mm3 (150-400); RDW Coefficient Variation 12.9 % (11.7-14.2); RDW Standard Deviation 45.1 fL (35.1-46.3); Red Blood Cell Count 4.72 M/mm3 (3.80-5.20); White Blood Cell Count 5.05 K/mm3 (4.00-11.30)
[2021-09-01 16:05] LABS: Alanine Aminotransfer (ALT/SGP 23 U/L (12-78); Albumin, Blood 3.7 g/dL (3.4-5.0); Alk Phos 170 U/L (50-136); Anion Gap 3 mmol/L (6-16); Aspartate Aminotrans (AST/SGOT 20 U/L (12-37); Bilirubin, Total 0.4 mg/dL (0.1-1.0); Blood Urea Nitrogen 17 mg/dL (8-24); CO2, Blood 26 mmol/L (21-32); Calcium, Blood 9.3 mg/dL (8.5-10.1); Chloride, Blood 108 mmol/L (98-108); Creatinine, Blood 0.68 mg/dL (0.40-1.00); Globulin, Blood 3.7 g/dL (2.2-4.0); Glomerular Filtration Rate >60 (60-); Glucose, Blood 105 mg/dL (70-99); Sodium, Blood 137 mmol/L (136-145); Total Protein, Blood 7.4 g/dL (6.4-8.2)
[2021-09-01] MEDS ORDERED: DICLEGIS DR 101 EAC1 PO (17:30)
[2021-09-01] MEDS ORDERED: Protonix40 MG PO (17:30)
== END 2021-09-01 19:13 | disposition home or self-care (01) ==
LOC: ER 15:15
PROVIDERS: Physician Assistant
DX: K29.70 Gastritis, unspecified, without bleeding (principal); Z88.0 Allergy status to penicillin; Z88.5 Allergy status to narcotic agent; Z91.040 Latex allergy status; Z88.1 Allergy status to other antibiotic agents; Z88.2 Allergy status to sulfonamides; Z88.8 Allergy status to other drugs, medicaments and biological substances; Z79.899 Other long term (current) drug therapy; Z79.891 Long term (current) use of opiate analgesic; J45.909 Unspecified asthma, uncomplicated; G40.909 Epilepsy, unspecified, not intractable, without status epilepticus; Z87.891 Personal history of nicotine dependence
CPT/HCPCS: 80053; 85025; 96374; 99284-25; C9113

== ENCOUNTER 2021-09-05 13:44 | Emergency (ER) | payer MEDICARE, OTHER ==
[~2021-09-05] VITALS: Ht 160 cm; Wt 54.4 kg
[~2021-09-05 13:44] MED LIST changes: +DICLEGIS DR 101 EAC1 PO; +Protonix40 MG PO
[2021-09-05 16:14] LABS: BASOPHILS ABSOLUTE AUTO 0.02 K/mm3 (0.00-0.23); BASOPHILS PERCENT AUTO 0 % (0-2); EOSINOPHILS ABSOLUTE AUTO 0.17 K/mm3 (0.00-0.68); EOSINOPHILS PERCENT AUTO 3 % (0-6); Hematocrit 43.7 % (33.0-51.0); Hemoglobin 14.5 g/dL (11.5-16.0); IMMATURE GRAN PERCENT AUTO 0 % (0-1); LYMPHOCYTES ABSOLUTE AUTO 1.86 K/mm3 (0.84-5.20); LYMPHOCYTES PERCENT AUTO 33 % (21-46); MONOCYTES ABSOLUTE AUTO 0.63 K/mm3 (0.16-1.47); MONOCYTES PERCENT AUTO 11 % (4-13); Mean Corpuscular HGB 32.2 pg (26.0-34.0); Mean Corpuscular HGB Conc 33.2 g/dL (31.5-36.5); Mean Corpuscular Volume 97 fL (80-100); Mean Platelet Volume 10.5 fL (9.1-12.4); NEUTROPHILS ABSOLUTE AUTO 3.01 K/mm3 (1.96-9.15); NEUTROPHILS PERCENT AUTO 53 % (41-73); Platelet Count 205 K/mm3 (150-400); RDW Coefficient Variation 13.1 % (11.7-14.2); RDW Standard Deviation 46.5 fL (35.1-46.3); White Blood Cell Count 5.69 K/mm3 (4.00-11.30)
[2021-09-05 16:38] LABS: Alanine Aminotransfer (ALT/SGP 17 U/L (12-78); Albumin, Blood 3.6 g/dL (3.4-5.0); Alk Phos 170 U/L (50-136); Anion Gap 1 mmol/L (6-16); Aspartate Aminotrans (AST/SGOT 9 U/L (12-37); Bilirubin, Total 0.2 mg/dL (0.1-1.0); Blood Urea Nitrogen 28 mg/dL (8-24); Bun/Creatinine Ratio 36.4 (12.0-20.0); CO2, Blood 29 mmol/L (21-32); Chloride, Blood 109 mmol/L (98-108); Creatinine, Blood 0.77 mg/dL (0.40-1.00); Globulin, Blood 3.7 g/dL (2.2-4.0); Glomerular Filtration Rate >60 (60-); Glucose, Blood 120 mg/dL (70-99); Potassium, Blood 4.4 mmol/L (3.5-5.5); Sodium, Blood 139 mmol/L (136-145); Total Protein, Blood 7.3 g/dL (6.4-8.2)
[2021-09-05] MEDS ORDERED: Carafate1 GM/10 ML PO (18:41)
== END 2021-09-05 18:50 | disposition home or self-care (01) ==
LOC: ER 13:44
PROVIDERS: Physician Assistant
DX: K29.70 Gastritis, unspecified, without bleeding (principal); J45.909 Unspecified asthma, uncomplicated; G40.909 Epilepsy, unspecified, not intractable, without status epilepticus; Z88.0 Allergy status to penicillin; Z88.5 Allergy status to narcotic agent; Z91.048 Other nonmedicinal substance allergy status; Z88.2 Allergy status to sulfonamides; Z88.1 Allergy status to other antibiotic agents; Z79.899 Other long term (current) drug therapy
CPT/HCPCS: 36415; 80053; 83690; 85025; 96374; 96375; 99284-25; A9270; J2405; J7030

== ENCOUNTER 2022-01-20 14:18 | Emergency (ER) | payer MEDICARE, OTHER ==
[~2022-01-20] VITALS: Ht 162.6 cm; Wt 72.6 kg
[~2022-01-20 14:18] MED LIST changes: +Carafate1 GM/10 ML PO
[2022-01-20 15:47] LABS: Source, Urine Clean Catch
[2022-01-20 15:50] LABS: Appearance, Urine Cloudy (Clear); Bilirubin, Urine Neg (Neg); Blood, Urine Neg (Neg); Color, Urine Yellow (P-Yellow); Glucose Qualitative, Urine Neg (Neg); Ketones, Urine Neg (Neg); Leukocyte Esterase, Urine Neg (Neg); Nitrite, Urine Neg (Neg); Protein, Urine Neg (Neg); Urobilinogen, Urine NORM (Normal)
[2022-01-20 15:50] LABS: BASOPHILS ABSOLUTE AUTO 0.02 K/mm3 (0.00-0.23); BASOPHILS PERCENT AUTO 0 % (0-2); EOSINOPHILS ABSOLUTE AUTO 0.14 K/mm3 (0.00-0.68); EOSINOPHILS PERCENT AUTO 3 % (0-6); Hematocrit 42.2 % (33.0-51.0); Hemoglobin 14.3 g/dL (11.5-16.0); IMMATURE GRAN PERCENT AUTO 0 % (0-1); LYMPHOCYTES ABSOLUTE AUTO 1.52 K/mm3 (0.84-5.20); LYMPHOCYTES PERCENT AUTO 28 % (21-46); MONOCYTES ABSOLUTE AUTO 0.42 K/mm3 (0.16-1.47); MONOCYTES PERCENT AUTO 8 % (4-13); Mean Corpuscular HGB 32.6 pg (26.0-34.0); Mean Corpuscular HGB Conc 33.9 g/dL (31.5-36.5); Mean Corpuscular Volume 96 fL (80-100); Mean Platelet Volume 10.4 fL (9.1-12.4); NEUTROPHILS ABSOLUTE AUTO 3.29 K/mm3 (1.96-9.15); NEUTROPHILS PERCENT AUTO 61 % (41-73); Platelet Count 181 K/mm3 (150-400); RDW Coefficient Variation 12.5 % (11.7-14.2); RDW Standard Deviation 45.1 fL (35.1-46.3); Red Blood Cell Count 4.39 M/mm3 (3.80-5.20); White Blood Cell Count 5.39 K/mm3 (4.00-11.30)
[2022-01-20 16:04] LABS: Amorphous Heavy (0-Heavy); Bacteria Few /hpf; Red Blood Cells, Urine 0-2 /hpf (0-2); Squamous Epithelial Cells Few /hpf (Few); White Blood Cells, Urine 0-2 /hpf (0-5)
[2022-01-20 16:17] LABS: Albumin, Blood 3.9 g/dL (3.4-5.0); Albumin/Globulin Ratio 1.2 (0.8-1.8); Bilirubin, Total 0.2 mg/dL (0.1-1.0); Bun/Creatinine Ratio 42.6 (12.0-20.0); Calcium, Blood 9.2 mg/dL (8.5-10.1); Creatinine, Blood 0.49 mg/dL (0.40-1.00); Globulin, Blood 3.3 g/dL (2.2-4.0); Potassium, Blood 3.8 mmol/L (3.5-5.5); Total Protein, Blood 7.2 g/dL (6.4-8.2)
== END 2022-01-20 18:18 | disposition home or self-care (01) ==
LOC: ER 14:18
PROVIDERS: Student in an Organized Health Care Education/Training Program
DX: R10.31 Right lower quadrant pain (principal); J45.909 Unspecified asthma, uncomplicated; G40.909 Epilepsy, unspecified, not intractable, without status epilepticus; F32.A Depression, unspecified; Z88.5 Allergy status to narcotic agent; Z88.0 Allergy status to penicillin; Z88.2 Allergy status to sulfonamides; Z88.8 Allergy status to other drugs, medicaments and biological substances; Z88.6 Allergy status to analgesic agent; Z91.040 Latex allergy status; Z79.899 Other long term (current) drug therapy; Z87.891 Personal history of nicotine dependence
CPT/HCPCS: 36415; 74176; 80053; 81001; 85025; A9270

== ENCOUNTER 2022-04-26 18:16 | Emergency (ER) | payer MEDICARE, OTHER ==
[~2022-04-26] VITALS: Ht 160 cm; Wt 72.6 kg
== END 2022-04-26 22:15 | disposition home or self-care (01) ==
LOC: ER 18:16
DX: S20.219A Contusion of unspecified front wall of thorax, initial encounter (principal); W19.XXXA Unspecified fall, initial encounter; Z88.0 Allergy status to penicillin; Z88.8 Allergy status to other drugs, medicaments and biological substances; Z88.5 Allergy status to narcotic agent; Z91.040 Latex allergy status; Z79.899 Other long term (current) drug therapy; Z87.891 Personal history of nicotine dependence
CPT/HCPCS: 71100; 72080

== ENCOUNTER 2024-02-08 12:42 | Day surgery (SDC) | payer MEDICARE, OTHER ==
[~2024-02-08] VITALS: Ht 162.6 cm; Wt 69.1 kg
[~2024-02-08 12:42] MED LIST changes: +APTIOM400 MG PO; +Balanced Salt Epinephrine Irrigation Solution 500 mL IR SCH; +FentaNYL Citrate 50 MCG/ML 2 ML Injection ONE; +Lidocaine HCl/Pf 1% 5 ML VIAL XX SCH; +Midazolam HCl 1MG / ML 2ML Vial ONE; +Moxifloxacin HCL 0.5 MG/0.1 ML 0.4MLSYR RIGHTEYE SCH; +NS 500 ML IV ONE; +PHENYLEPHRINE\\TROPICAMIDE\\TETRACAINE OPHTHALMIC DILATING SOLN RIGHTEYE PRN; +Povidone-Iodine 450 DROP/30 ML Solution RIGHTEYE SCH; +ZANAFLEX413 PO
[2024-02-08] MEDS ORDERED: APTIOM800 MG PO (13:28)
[2024-02-08] MEDS ORDERED: DICLOFENAC SODI50 GM (13:31)
[2024-02-08] MEDS ORDERED: FLUTICASONE PRO16 GM (13:31)
[2024-02-08] MEDS ORDERED: HYDROCODONE-AC1 EAC7 (13:32)
[2024-02-08] MEDS ORDERED: NS 500 ML IV ONE ×2 (13:40→14:06)
--- NOTE | 2024-02-08 13:46 | NUR ---
02/08/24 Kymberly Duque RN DISCUSSED WITH DR PUCKETT THAT PATIENT CHART NOTES ALLERGY TO LEVOFLOXACIN, BUT CHART NOTE FROM [facility] STATES FROM 02/02/2024 THAT PATIENT REPORTS NO ISSUES WITH EYE DROPS AT HOME. PER DR PUCKETT OK TO PROCEED.
[2024-02-08 14:10] VITALS: BP 115/76
== END 2024-02-08 14:31 | disposition home or self-care (01) ==
LOC: ORSCSDS 12:42
PROVIDERS: Student in an Organized Health Care Education/Training Program
PROC: 08RJ3JZ Replacement of Right Lens with Synthetic Substitute, Percutaneous Approach (ICD-10-PCS; principal; 2024-02-08 13:45)
DX: H25.813 Combined forms of age-related cataract, bilateral (principal); Z87.891 Personal history of nicotine dependence
CPT/HCPCS: J2250; J3010; J7040; V2632

== ENCOUNTER 2024-02-15 12:28 | Day surgery (SDC) | payer MEDICARE, OTHER ==
[~2024-02-15] VITALS: Ht 162.6 cm; Wt 69.3 kg
[~2024-02-15 12:28] MED LIST changes: +DICLOFENAC SODI50 GM; +FLUTICASONE PRO16 GM; -FentaNYL Citrate 50 MCG/ML 2 ML Injection ONE; +HYDROCODONE-AC1 EAC7; +Lidocaine HCl/Pf 1% 5 ML VIAL ONE; -Midazolam HCl 1MG / ML 2ML Vial ONE; +Moxifloxacin HCL 0.5 MG/0.1 ML 0.4MLSYR LEFTEYE SCH; -Moxifloxacin HCL 0.5 MG/0.1 ML 0.4MLSYR RIGHTEYE SCH; +PHENYLEPHRINE\\TROPICAMIDE\\TETRACAINE OPHTHALMIC DILATING SOLN LEFTEYE PRN; -PHENYLEPHRINE\\TROPICAMIDE\\TETRACAINE OPHTHALMIC DILATING SOLN RIGHTEYE PRN; +Povidone-Iodine 450 DROP/30 ML Solution LEFTEYE SCH; -Povidone-Iodine 450 DROP/30 ML Solution RIGHTEYE SCH
--- NOTE | 2024-02-15 13:11 | NUR ---
02/15/24 1311 Lizette Enamorado CALL LIGHT WITHIN REACH. TETRACAINE IN LEFT EYE AT 1305 PLEDGETTE IN LEFT EYE AT 1307
[2024-02-15] MEDS ORDERED: NS 500 ML IV ONE (13:27)
[2024-02-15] MEDS ORDERED: Midazolam HCl 1MG / ML 2ML Vial ONE ×2 (13:34→13:54)
[2024-02-15 15:50] VITALS: BP 114/65
== END 2024-02-15 14:40 | disposition home or self-care (01) ==
LOC: ORSCSDS 12:28
PROVIDERS: Student in an Organized Health Care Education/Training Program
PROC: 08RK3JZ Replacement of Left Lens with Synthetic Substitute, Percutaneous Approach (ICD-10-PCS; principal; 2024-02-15 14:00)
DX: H25.812 Combined forms of age-related cataract, left eye (principal); Z96.1 Presence of intraocular lens; F32.A Depression, unspecified; Z79.899 Other long term (current) drug therapy
CPT/HCPCS: J2001; J2250; J7040; V2632

== ENCOUNTER 2024-06-12 15:10 | Emergency (ER) | payer OTHER, MEDICARE ==
[~2024-06-12] VITALS: Ht 165.1 cm; Wt 70.3 kg
[~2024-06-12 15:10] MED LIST changes: -Balanced Salt Epinephrine Irrigation Solution 500 mL IR SCH; -Lidocaine HCl/Pf 1% 5 ML VIAL ONE; -Lidocaine HCl/Pf 1% 5 ML VIAL XX SCH; -Moxifloxacin HCL 0.5 MG/0.1 ML 0.4MLSYR LEFTEYE SCH; -NS 500 ML IV ONE; -PHENYLEPHRINE\\TROPICAMIDE\\TETRACAINE OPHTHALMIC DILATING SOLN LEFTEYE PRN; -Povidone-Iodine 450 DROP/30 ML Solution LEFTEYE SCH
[2024-06-12] MEDS ORDERED: Ondansetron HCl 2 MG / ML 2ML Vial IV ONE (19:05)
[2024-06-12] MEDS ORDERED: Acetaminophen 325 MG TABLET PO ONE (19:15)
[2024-06-12] MEDS ORDERED: Ondansetron 4 MG SoluTab SL ONE (19:15)
[2024-06-12 19:30] VITALS: BP 125/81
== END 2024-06-12 20:50 | disposition home or self-care (01) ==
LOC: ER 15:10
DX: S00.03XA Contusion of scalp, initial encounter (principal); M54.2 Cervicalgia; J45.909 Unspecified asthma, uncomplicated; W01.0XXA Fall on same level from slipping, tripping and stumbling without subsequent striking against object, initial encounter; Z87.891 Personal history of nicotine dependence; Z79.51 Long term (current) use of inhaled steroids; Z79.899 Other long term (current) drug therapy; Z88.1 Allergy status to other antibiotic agents; Z88.5 Allergy status to narcotic agent; Z91.040 Latex allergy status; Z88.0 Allergy status to penicillin; Z88.6 Allergy status to analgesic agent; Z88.2 Allergy status to sulfonamides; Z88.8 Allergy status to other drugs, medicaments and biological substances
CPT/HCPCS: 70450; 72125; 93005; 93010; 99284-25; A9270; J2405

== ENCOUNTER 2024-06-26 08:37 | Emergency (ER) | payer MEDICARE, OTHER ==
[~2024-06-26] VITALS: Ht 167.6 cm; Wt 69.0 kg
[2024-06-26 10:27] VITALS: BP 122/63
[2024-06-26] MEDS ORDERED: Acetaminophen 500 MG Tab PO ONE (12:50)
== END 2024-06-26 14:23 | disposition home or self-care (01) ==
LOC: ER 08:37
DX: S63.501A Unspecified sprain of right wrist, initial encounter (principal); S20.211A Contusion of right front wall of thorax, initial encounter; Z79.899 Other long term (current) drug therapy; Z88.0 Allergy status to penicillin; Z88.5 Allergy status to narcotic agent; Z91.040 Latex allergy status; Z88.8 Allergy status to other drugs, medicaments and biological substances; Z87.891 Personal history of nicotine dependence; W01.0XXA Fall on same level from slipping, tripping and stumbling without subsequent striking against object, initial encounter
CPT/HCPCS: 71101; 73110; 99284-25; A9270

== ENCOUNTER 2024-10-11 04:19 | Emergency (ER) | payer MEDICARE, OTHER ==
[~2024-10-11] VITALS: Ht 162.6 cm; Wt 83.9 kg
[~2024-10-11 04:19] MED LIST changes: -DICLOFENAC SODI50 GM; +DICLOFENAC SODI50 GM TOP; -HYDROCODONE-AC1 EAC7; +HYDROCODONE-AC1 EAC7 PO; +Imitrex100 MG PO
[2024-10-11 04:36] LABS: BASOPHILS ABSOLUTE AUTO 0.04 K/mm3 (0.00-0.23); BASOPHILS PERCENT AUTO 1 % (0-2); EOSINOPHILS ABSOLUTE AUTO 0.36 K/mm3 (0.00-0.68); EOSINOPHILS PERCENT AUTO 4 % (0-6); Hematocrit 42.2 % (33.0-51.0); IMMATURE GRAN ABSOLUTE AUTO 0.06 K/mm3 (0.00-0.10); IMMATURE GRAN PERCENT AUTO 1 % (0-1); LYMPHOCYTES ABSOLUTE AUTO 2.15 K/mm3 (0.84-5.20); LYMPHOCYTES PERCENT AUTO 25 % (21-46); MONOCYTES ABSOLUTE AUTO 0.81 K/mm3 (0.16-1.47); MONOCYTES PERCENT AUTO 9 % (4-13); Mean Corpuscular HGB 32.4 pg (26.0-34.0); Mean Corpuscular HGB Conc 33.2 g/dL (31.5-36.5); Mean Corpuscular Volume 98 fL (80-100); Mean Platelet Volume 8.9 fL (9.1-12.4); NEUTROPHILS ABSOLUTE AUTO 5.25 K/mm3 (1.96-9.15); NEUTROPHILS PERCENT AUTO 61 % (41-73); Platelet Count 278 K/mm3 (150-400); RDW Coefficient Variation 12.1 % (11.7-14.2); RDW Standard Deviation 43.6 fL (35.1-46.3); Red Blood Cell Count 4.32 M/mm3 (3.80-5.20); White Blood Cell Count 8.67 K/mm3 (4.00-11.30)
[2024-10-11 04:58] LABS: Albumin, Blood 3.1 g/dL (3.4-5.0); Albumin/Globulin Ratio 0.9 (0.8-1.8); Bilirubin, Total 0.2 mg/dL (0.1-1.0); Bun/Creatinine Ratio 27.1 (12.0-20.0); Calcium, Blood 8.8 mg/dL (8.5-10.1); Creatinine, Blood 0.55 mg/dL (0.40-1.00); Globulin, Blood 3.5 g/dL (2.2-4.0); Potassium, Blood 4.3 mmol/L (3.5-5.5); Total Protein, Blood 6.6 g/dL (6.4-8.2)
[2024-10-11 05:17] LABS: Influenza A, PCR NEGATIVE (NEGATIVE); Influenza B, PCR NEGATIVE (NEGATIVE); Resp Syncytial Virus, PCR NEGATIVE (NEGATIVE); SARS-Cov-2 (COVID-19) PCR, MMC NEGATIVE (NEGATIVE)
[2024-10-11 07:35] VITALS: BP 128/80
== END 2024-10-11 07:45 | disposition home or self-care (01) ==
LOC: ER 04:19
PROVIDERS: Emergency Medicine
DX: B34.9 Viral infection, unspecified (principal); R06.00 Dyspnea, unspecified; Z88.0 Allergy status to penicillin; Z88.5 Allergy status to narcotic agent; Z88.6 Allergy status to analgesic agent; Z88.8 Allergy status to other drugs, medicaments and biological substances; Z91.040 Latex allergy status; Z79.899 Other long term (current) drug therapy; Z87.891 Personal history of nicotine dependence; Z11.52 Encounter for screening for COVID-19
CPT/HCPCS: 0241U; 71046; 80053; 84484; 85025; 93005; 93010; 99285-25; A6590

== ENCOUNTER 2024-10-15 20:13 | Observation (INO) | payer MEDICARE, OTHER ==
[~2024-10-15] VITALS: Ht 162.6 cm; Wt 77.5 kg
[2024-10-15] MEDS ORDERED: Diltiazem HCl 5 MG / ML 5ML Vial IV ONE (20:40)
[2024-10-15 20:46] LABS: BASOPHILS ABSOLUTE AUTO 0.04 K/mm3 (0.00-0.23); BASOPHILS PERCENT AUTO 1 % (0-2); EOSINOPHILS ABSOLUTE AUTO 0.25 K/mm3 (0.00-0.68); EOSINOPHILS PERCENT AUTO 3 % (0-6); Hematocrit 44.6 % (33.0-51.0); Hemoglobin 15.1 g/dL (11.5-16.0); IMMATURE GRAN ABSOLUTE AUTO 0.02 K/mm3 (0.00-0.10); IMMATURE GRAN PERCENT AUTO 0 % (0-1); LYMPHOCYTES ABSOLUTE AUTO 2.91 K/mm3 (0.84-5.20); LYMPHOCYTES PERCENT AUTO 34 % (21-46); MONOCYTES ABSOLUTE AUTO 0.72 K/mm3 (0.16-1.47); MONOCYTES PERCENT AUTO 8 % (4-13); Mean Corpuscular HGB 32.5 pg (26.0-34.0); Mean Corpuscular HGB Conc 33.9 g/dL (31.5-36.5); Mean Corpuscular Volume 96 fL (80-100); Mean Platelet Volume 9.6 fL (9.1-12.4); NEUTROPHILS ABSOLUTE AUTO 4.69 K/mm3 (1.96-9.15); NEUTROPHILS PERCENT AUTO 54 % (41-73); Platelet Count 300 K/mm3 (150-400); RDW Coefficient Variation 12.5 % (11.7-14.2); RDW Standard Deviation 44.1 fL (35.1-46.3); Red Blood Cell Count 4.64 M/mm3 (3.80-5.20); White Blood Cell Count 8.63 K/mm3 (4.00-11.30)
[2024-10-15 21:18] LABS: Albumin, Blood 3.4 g/dL (3.4-5.0); Bilirubin, Total 0.2 mg/dL (0.1-1.0); Creatinine, Blood 0.6 mg/dL (0.40-1.00); Globulin, Blood 3.5 g/dL (2.2-4.0); Potassium, Blood 4.3 mmol/L (3.5-5.5); Thyroid Stimulating Hormone 4.25 uIU/mL (0.360-4.800); Total Protein, Blood 6.9 g/dL (6.4-8.2)
[2024-10-15] MEDS ORDERED: Acetaminophen 325 MG TABLET PO PRN (22:05)
[2024-10-15] MEDS ORDERED: Ondansetron HCl 2 MG / ML 2ML Vial IV PRN (22:10)
[2024-10-15 22:13] LABS: Magnesium, Blood 2.4 mg/dL (1.6-2.4)
[2024-10-15] MEDS ORDERED: Diltiazem HCL 125MG/D5 125ML IV SCH (22:20)
[2024-10-16] VITALS (7 sets, daily range): BP systolic 102–156; BP diastolic 64–94
[2024-10-16 00:23] LABS: Anti-Xa UFH, PHA Monitoring <0.10 IU/mL; International Normalized Ratio 0.91; Prothrombin Time Results 9.8 Sec (9.7-11.5)
[2024-10-16] MEDS ORDERED: Dose Adjust by Pharmacy XX STA (00:41)
[2024-10-16] MEDS ORDERED: Heparin Sodium 5000 Units/ML 1ML MDV IV ONE (00:45)
[2024-10-16] MEDS ORDERED: Heparin Sodium,Porcine/0.5 NS 500 ML IV SCH (00:45)
[2024-10-16] MEDS ORDERED: Naloxone HCL 4 MG SPRAY (1 UNIT) PRN (03:30)
[2024-10-16] MEDS ORDERED: Benzonatate 100 MG Cap PO PRN (03:30)
[2024-10-16] MEDS ORDERED: HYDROcodone 10-APAP 325 TAB PO PRN (03:30)
[2024-10-16] MEDS ORDERED: Meclizine HCl 25 MG Tab PO PRN (03:35)
[2024-10-16] MEDS ORDERED: CODEINE PO PRN (03:35)
[2024-10-16] MEDS ORDERED: CAFFEINE PO PRN (03:35)
[2024-10-16] MEDS ORDERED: BUTALBITAL PO PRN (03:35)
[2024-10-16] MEDS ORDERED: ASPIRIN PO PRN (03:35)
[2024-10-16 04:58] LABS: BASOPHILS ABSOLUTE AUTO 0.05 K/mm3 (0.00-0.23); BASOPHILS PERCENT AUTO 1 % (0-2); EOSINOPHILS ABSOLUTE AUTO 0.29 K/mm3 (0.00-0.68); EOSINOPHILS PERCENT AUTO 3 % (0-6); Hematocrit 44.3 % (33.0-51.0); Hemoglobin 14.7 g/dL (11.5-16.0); IMMATURE GRAN ABSOLUTE AUTO 0.03 K/mm3 (0.00-0.10); IMMATURE GRAN PERCENT AUTO 0 % (0-1); LYMPHOCYTES ABSOLUTE AUTO 2.45 K/mm3 (0.84-5.20); LYMPHOCYTES PERCENT AUTO 28 % (21-46); MONOCYTES ABSOLUTE AUTO 0.59 K/mm3 (0.16-1.47); MONOCYTES PERCENT AUTO 7 % (4-13); Mean Corpuscular HGB Conc 33.2 g/dL (31.5-36.5); Mean Corpuscular Volume 97 fL (80-100); Mean Platelet Volume 9.6 fL (9.1-12.4); NEUTROPHILS ABSOLUTE AUTO 5.31 K/mm3 (1.96-9.15); NEUTROPHILS PERCENT AUTO 61 % (41-73); Platelet Count 299 K/mm3 (150-400); RDW Coefficient Variation 12.4 % (11.7-14.2); Red Blood Cell Count 4.59 M/mm3 (3.80-5.20); White Blood Cell Count 8.72 K/mm3 (4.00-11.30)
[2024-10-16 05:34] LABS: Albumin, Blood 3.2 g/dL (3.4-5.0); Albumin/Globulin Ratio 0.9 (0.8-1.8); Bilirubin, Total 0.2 mg/dL (0.1-1.0); Bun/Creatinine Ratio 22.5 (12.0-20.0); Calcium, Blood 8.5 mg/dL (8.5-10.1); Creatinine, Blood 0.53 mg/dL (0.40-1.00); Globulin, Blood 3.5 g/dL (2.2-4.0); Magnesium, Blood 2.3 mg/dL (1.6-2.4); Potassium, Blood 3.5 mmol/L (3.5-5.5); Total Protein, Blood 6.7 g/dL (6.4-8.2)
--- NOTE | 2024-10-16 06:24 | NUR ---
PT CONVERTED TO SINUS RHYTHM AT 0351, DILTIAZEM INFUSION D/C'D AT 0405.
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
[2024-10-16] MEDS ORDERED: Misc. Tablet PO PRN (07:25)
[2024-10-16] MEDS ORDERED: Simethicone 80 MG Chew PO PRN (07:25)
[2024-10-16] MEDS ORDERED: Potassium Chloride 20 MEQ TabCR PO ONE (08:00)
[2024-10-16] MEDS ORDERED: Enoxaparin 40 MG/0.4 ML SYR SC SCH (09:00)
[2024-10-16] MEDS ORDERED: Ascorbic Acid 500 MG Tab PO SCH (09:00)
[2024-10-16] MEDS ORDERED: Loratadine 10 MG Tab PO SCH (09:00)
[2024-10-16] MEDS ORDERED: Apixaban 5 MG Tab PO SCH (09:00)
[2024-10-16] MEDS ORDERED: Docusate Sodium 100 MG Cap PO SCH (09:00)
[2024-10-16] MEDS ORDERED: DULoxetine HCL 60 MG Capsule DR PO SCH (09:00)
[2024-10-16] MEDS ORDERED: Metoprolol Succinate 25 MG TABCR PO SCH (09:00)
[2024-10-16] MEDS ORDERED: Fluticasone 0.05% Nasal Spray SCH (09:00)
[2024-10-16] MEDS ORDERED: Misc. Tablet PO SCH ×2 (09:00)
[2024-10-16] MEDS ORDERED: Cholecalciferol 1000 Unit Tablet (=25MCG) PO SCH (09:00)
[2024-10-16] MEDS ORDERED: HYDROCODONE-AC1 EAC7 PO (10:13)
[2024-10-16] MEDS ORDERED: MAGNESIUM GLYC100 MG PO (10:16)
[2024-10-16] MEDS ORDERED: ALBU90OI INH (10:18)
[2024-10-16] MEDS ORDERED: ACET500 PO (10:19)
[2024-10-16] MEDS ORDERED: CALCIUM PO (10:23)
[2024-10-16] MEDS ORDERED: Vitamin B Comple1 EA PO (10:24)
[2024-10-16] MEDS ORDERED: SUMAtriptan succinate 50 MG Tab PO PRN (11:00)
[2024-10-16] MEDS ORDERED: METO25ER PO (12:01)
[2024-10-16] MEDS ORDERED: ELIQUIS5 M2 PO (12:02)
--- NOTE | 2024-10-16 17:03 | NUR ---
SHIFT SUMMARY/ DISCHARGE NOTE: PT A&OX4. FOLLOWS COMMANDS AND MAKES NEEDS KNOWN TO STAFF. PT WAS ABLE TO GET UP TO THE BSC WITH 1P ASSIST WITH WALKER. PT DENIED ANY COMPLAINTS OF CP, PRESSURE, TIGHTNESS OR SOB. VS WERE STABLE THROUGOUT SHIFT. NO SIGNIFICANT EVENTS HAPPENED DURING THIS SHIFT. PT WAS DISCHARGED TO HOME VIA EMS AT 1702. THIS RN WENT OVER DISCHARGE INSTRUCTIONS WITH PT AND ALSO CALLED CARE GIVEN TO GO OVER NEW MEDICATIONS AND DISCHARGE INSTRUCTIONS. PTS IVS WERE REMOVED WITH CATHETER INTACT. BELONGINGS WERE COLLECTED AND TAKEN HOME WITH PT. PTS HOME MEDS WERE ALSO SENT HOME IN BELONGINGS BAG.
[2024-10-16] MEDS ORDERED: ESLICARBAZEPINE 800 MG PO SCH (18:00)
[2024-10-17] MEDS ORDERED: Misc. Tablet PO SCH (09:00)
== END 2024-10-16 17:03 | disposition home or self-care (01) ==
LOC: ER 20:13 → PCU 22:04 → ERHOLD 22:04 → PCU 23:45
PROVIDERS: Emergency Medicine; ADMIT Student in an Organized Health Care Education/Training Program
DX: I48.91 Unspecified atrial fibrillation (principal); F32.9 Major depressive disorder, single episode, unspecified; G40.909 Epilepsy, unspecified, not intractable, without status epilepticus; Z88.0 Allergy status to penicillin; Z88.5 Allergy status to narcotic agent; Z88.8 Allergy status to other drugs, medicaments and biological substances; Z91.040 Latex allergy status; Z79.01 Long term (current) use of anticoagulants; Z79.899 Other long term (current) drug therapy
CPT/HCPCS: 36415; 71045; 80053; 83735; 83880; 84443; 84484; 85025; 85520; 85610; 85730; 93005; 93010; 93306; 94762; 96374; 96375; 97110; 97162; 97530; 99285-25; A9270; G0378; J1644

== ENCOUNTER 2024-11-28 21:59 | Observation (INO) | payer MEDICARE, OTHER ==
[~2024-11-28] VITALS: Ht 165.1 cm; Wt 68.0 kg
[~2024-11-28 21:59] MED LIST changes: +ACET500 PO; +ALBU90OI INH; +B-121000 MC3 PO; +CALCIUM 600 +1 EA11 PO; +ELIQUIS5 M2 PO; +MAGNESIUM GLYC100 MG PO; +METO25ER PO
[2024-11-28 22:59] LABS: BASOPHILS ABSOLUTE AUTO 0.04 K/mm3 (0.00-0.23); BASOPHILS PERCENT AUTO 1 % (0-2); EOSINOPHILS ABSOLUTE AUTO 0.32 K/mm3 (0.00-0.68); EOSINOPHILS PERCENT AUTO 4 % (0-6); Hematocrit 41.9 % (33.0-51.0); Hemoglobin 14.1 g/dL (11.5-16.0); IMMATURE GRAN ABSOLUTE AUTO 0.01 K/mm3 (0.00-0.10); IMMATURE GRAN PERCENT AUTO 0 % (0-1); LYMPHOCYTES ABSOLUTE AUTO 1.68 K/mm3 (0.84-5.20); LYMPHOCYTES PERCENT AUTO 22 % (21-46); MONOCYTES ABSOLUTE AUTO 0.65 K/mm3 (0.16-1.47); MONOCYTES PERCENT AUTO 9 % (4-13); Mean Corpuscular HGB 31.9 pg (26.0-34.0); Mean Corpuscular HGB Conc 33.7 g/dL (31.5-36.5); Mean Corpuscular Volume 95 fL (80-100); Mean Platelet Volume 11.3 fL (9.1-12.4); NEUTROPHILS ABSOLUTE AUTO 4.92 K/mm3 (1.96-9.15); NEUTROPHILS PERCENT AUTO 65 % (41-73); Platelet Count 225 K/mm3 (150-400); RDW Coefficient Variation 12.7 % (11.7-14.2); RDW Standard Deviation 44.2 fL (35.1-46.3); Red Blood Cell Count 4.42 M/mm3 (3.80-5.20); White Blood Cell Count 7.62 K/mm3 (4.00-11.30)
[2024-11-29] VITALS (7 sets, daily range): BP systolic 118–141; BP diastolic 81–95
[2024-11-29 00:40] LABS: Albumin, Blood 3.7 g/dL (3.4-5.0); Albumin/Globulin Ratio 1.1 (0.8-1.8); Bilirubin, Total 0.2 mg/dL (0.1-1.0); Bun/Creatinine Ratio 23.2 (12.0-20.0); Calcium, Blood 9.2 mg/dL (8.5-10.1); Creatinine, Blood 0.56 mg/dL (0.40-1.00); Globulin, Blood 3.3 g/dL (2.2-4.0); Magnesium, Blood 2.4 mg/dL (1.6-2.4); Potassium, Blood 3.7 mmol/L (3.5-5.5)
--- NOTE | 2024-11-29 04:15 | NUR ---
ADMIT NOTE FOR 11/29/24 0305/SHIFT SUMMARY CALLED AND RECEIVED REPORT FROM ER. PT WAS BROUGHT DOWN ON THE GURNEY AND TRANSFERRED OVER TO HER BED. ALERT ORIENTED X 2 BUT UNSURE OF DATE. PUREWICK IN PLACE WITH CLEAR YELLOW URINE. PT WAS ORIENTED TO STAFF AND ROOM. SHE WAS PUT ON TELE AT NSR AT 68. SHE HAS SCATTERED BRUISES TO BILAT ARMS. SHE REMAINS ON 2L O2 VIA NC SATTING AT 100%. SHES UNSURE OF WHAT MEDS SHE TAKES AT HOME SO WE NEED TO CALL HER CAREGIVER IN THE AM TO GET THE LIST OF HER MEDS. NO C/O HEADACHE OR DIZZINESS AT THIS TIME BUT SHE DOES STATE THAT HER HEAD FEELS VERY FUZZY. SHE REMAINS VERY WEAK. SHES IN BED AT THIS TIME WITH CALL LIGHT IN REACH AND BED ALARM ON
[2024-11-29 05:16] LABS: BASOPHILS ABSOLUTE AUTO 0.02 K/mm3 (0.00-0.23); BASOPHILS PERCENT AUTO 0 % (0-2); EOSINOPHILS ABSOLUTE AUTO 0.31 K/mm3 (0.00-0.68); EOSINOPHILS PERCENT AUTO 4 % (0-6); Hematocrit 39.8 % (33.0-51.0); Hemoglobin 13.3 g/dL (11.5-16.0); IMMATURE GRAN ABSOLUTE AUTO 0.02 K/mm3 (0.00-0.10); IMMATURE GRAN PERCENT AUTO 0 % (0-1); LYMPHOCYTES ABSOLUTE AUTO 2.25 K/mm3 (0.84-5.20); LYMPHOCYTES PERCENT AUTO 30 % (21-46); MONOCYTES ABSOLUTE AUTO 0.77 K/mm3 (0.16-1.47); MONOCYTES PERCENT AUTO 10 % (4-13); Mean Corpuscular HGB 32.3 pg (26.0-34.0); Mean Corpuscular HGB Conc 33.4 g/dL (31.5-36.5); Mean Corpuscular Volume 97 fL (80-100); Mean Platelet Volume 10.3 fL (9.1-12.4); NEUTROPHILS ABSOLUTE AUTO 4.14 K/mm3 (1.96-9.15); NEUTROPHILS PERCENT AUTO 55 % (41-73); Platelet Count 197 K/mm3 (150-400); RDW Coefficient Variation 12.6 % (11.7-14.2); RDW Standard Deviation 45.2 fL (35.1-46.3); Red Blood Cell Count 4.12 M/mm3 (3.80-5.20); White Blood Cell Count 7.51 K/mm3 (4.00-11.30)
[2024-11-29 05:41] LABS: Bun/Creatinine Ratio 19.1 (12.0-20.0); Creatinine, Blood 0.63 mg/dL (0.40-1.00); Potassium, Blood 3.5 mmol/L (3.5-5.5)
[2024-11-29] MEDS ORDERED: Apixaban 5 MG Tab PO SCH (09:00)
[2024-11-29] MEDS ORDERED: Metoprolol Succinate 25 MG TABCR PO SCH (09:00)
[2024-11-29] MEDS ORDERED: CAFFEINE PO PRN (11:55)
[2024-11-29] MEDS ORDERED: CODEINE PO PRN (11:55)
[2024-11-29] MEDS ORDERED: ASPIRIN PO PRN (11:55)
[2024-11-29] MEDS ORDERED: BUTALBITAL PO PRN (11:55)
[2024-11-29] MEDS ORDERED: HYDROcodone 10-APAP 325 TAB PO PRN (11:55)
[2024-11-29] MEDS ORDERED: Albuterol HFA200 ACT/6.7 GM INH INH PRN (12:00)
[2024-11-29] MEDS ORDERED: HYDROcodone 10-APAP 325 TAB PO SCH (14:00)
--- NOTE | 2024-11-29 18:17 | NUR ---
SUMMARY- AAOX4. X1-2 ASSIST TO BSC. PT'S GENERAL PAIN RELEIVED BY EMAR PAIN MEDS. PT ON RA. NO ACUTE EVENTS THIS SHIFT. GOOD APPETITE.
--- NOTE | 2024-11-30 00:09 | NUR ---
NEW T-ORDERS RECEIVED FROM THE ON-CALL HOSPITALIST: -DRY EYE DROPS QID PRN BOTH EYES, - TYLENOL PO 650MG Q6 PRN, AND ZOFRAN IV 4MG Q6 PRN. ENTERED TO Interview [employer]ocket, SEE EMAR.
[2024-11-30] MEDS ORDERED: Acetaminophen 325 MG TABLET PO PRN (00:10)
[2024-11-30] MEDS ORDERED: Artificial Tear Opth Oint 3.5 GM BOTHEYES PRN (00:10)
[2024-11-30] MEDS ORDERED: Ondansetron HCl 2 MG / ML 2ML Vial IV PRN (00:10)
[2024-11-30] MEDS ORDERED: Dextran/Hypromellose/Glycerin 15 DROP/ML BTL BOTHEYES PRN (00:15)
--- NOTE | 2024-11-30 03:43 | NUR ---
SHIFT SUMMARY NO ACUTE EVENTS DURING THIS SHIFT. PT IS PLEASANT, A/OX4, ABLE TO MAKE HER NEEDS KNOWN AND COOPERATIVE WITH CARE. NEW ORDERS RECEIVED FOR NAUSEA, DRY EYES AND ABD PAIN. SEE EMAR. MEDICATED PER EMAR. PT REPORTS EFFECTIVE. BM THIS SHIFT. BED AT THE LOWEST POSITION, CALL LIGHT W/I REACH. VSS.
[2024-11-30 05:11] VITALS: BP 92/52
[2024-11-30 08:11] VITALS: BP 130/78
[2024-11-30] MEDS ORDERED: DULoxetine HCL 60 MG Capsule DR PO SCH (09:00)
[2024-11-30] MEDS ORDERED: Cholecalciferol 1000 Unit Tablet (=25MCG) PO SCH (09:00)
[2024-11-30 12:08] VITALS: BP 124/76
[2024-11-30] MEDS ORDERED: Polyethylene Glycol 3350 17 gm PO PRN (14:10)
[2024-11-30] MEDS ORDERED: AZELASTINE137 MCG/06 (15:16)
[2024-11-30 15:31] VITALS: BP 116/58
[2024-11-30] MEDS ORDERED: SUMAtriptan succinate 50 MG Tab PO PRN (16:05)
--- NOTE | 2024-11-30 17:34 | NUR ---
PATIENT A/OX4, TRANSFER TO POWERCHAIR AT BASELINE CURRENTLY BEDREST. PATIENT HAS A 5TH METATARSAL FX AND CONSULT CALLED TO DR. GODOY. PAIN WELL MANAGED WITH SCHEDULED NORCO AND TYLENOL. IMITREX GIVEN X1 TODAY FOR MIGRAINE WITH STATED RELIEF. SR ON TELE, DENIES ANY CP OR PRESSURE. CALM AND COOPERATIVE WITH CARE AND ABLE TO MAKE NEEDS KNOWN. NO NEW CONCERNS THIS SHIFT.
[2024-11-30 19:27] VITALS: BP 145/75
[2024-11-30] MEDS ORDERED: Famotidine 20 MG Tab PO SCH (21:00)
[2024-11-30] MEDS ORDERED: Docusate Sodium/Senna 1 Tab PO SCH (21:00)
[2024-11-30 23:47] VITALS: BP 122/66
--- NOTE | 2024-12-01 03:11 | NUR ---
SHIFT SUMMARY NO ACUTE EVENTS DURING THIS SHIFT. PT C/O 08/21 LOW BACK PAIN AND RIGHT FOOT PAIN. MEDICATED WITH SCHEDULED ANALGESICS. PT REPORTS EFFECTIVE. TELE: SR @58, PT DENIES CP/PRESSURE. PT IS A/OX4, PLEASANT AND ABLE TO MAKE HER NEEDS KNOWN. BED AT THE LOWEST POSITION, CALL LIGHT W/I REACH. PUREWICK IN PLACE DURING NIGHT HRS, INCONTINENT OF URINE. IN BEDREST, BASELINE IS W/C. POST-OP BOOT FOR RIGHT FOOT BY THE BEDSIDE.
[2024-12-01 03:52] VITALS: BP 116/64
[2024-12-01 07:33] VITALS: BP 130/76
--- NOTE | 2024-12-01 10:00 | NUR ---
CALLED DR. GODOY INQUIRING ABOUT WEIGHT BEARING STATUS ON PATIENT'S R FOOT AND MOVING FORWARD WITH PHYSICAL THERAPY. NO ANSWER LEFT MESSAGE TO CALL BACK.
[2024-12-01 10:56] VITALS: BP 121/69
--- NOTE | 2024-12-01 12:32 | NUR ---
PER DR. GODOY PATIENT WILL NEED TO FOLLOW UP IN HIS OFFICE FOR THE POST OP BOOT. PATIENT WILL DISCHARGE WITH [facility] WITH THE [facility] UPON DISCHARGE AROUND 1500. CALL MADE BY CC AND [facility] TECHNICAL LEAD SENIOR DEVELOPER. PATIENT AND SOLDER MAKING SUPERVISOR NOTIFIED OF PLAN.
[2024-12-01] MEDS ORDERED: FAMO20 PO (12:41)
--- NOTE | 2024-12-01 15:11 | NUR ---
PT DISCHARGED THE PT WAS GIVEN DC INSTRUCTIONS BY HER PRIMARY NURSE. THE PT WAS TRANSPORTED VIA WHEELCHAIR TO THE FRONT TO MEET HER RIDE HOME. BELONGINGS RELEASED TO THE PT
== END 2024-12-01 15:10 | disposition home health service (06) ==
LOC: ER 21:59 → MEDS 22:00
PROVIDERS: Student in an Organized Health Care Education/Training Program; ADMIT Student in an Organized Health Care Education/Training Program
DX: R55 Syncope and collapse (principal); I48.91 Unspecified atrial fibrillation; S92.354A Nondisplaced fracture of fifth metatarsal bone, right foot, initial encounter for closed fracture; G40.909 Epilepsy, unspecified, not intractable, without status epilepticus; G81.94 Hemiplegia, unspecified affecting left nondominant side; J45.909 Unspecified asthma, uncomplicated; G43.909 Migraine, unspecified, not intractable, without status migrainosus; Z86.718 Personal history of other venous thrombosis and embolism; Z87.820 Personal history of traumatic brain injury; Z87.891 Personal history of nicotine dependence; Z79.01 Long term (current) use of anticoagulants; Z79.899 Other long term (current) drug therapy; Z88.0 Allergy status to penicillin; Z88.1 Allergy status to other antibiotic agents; Z88.2 Allergy status to sulfonamides; Z88.5 Allergy status to narcotic agent; Z88.8 Allergy status to other drugs, medicaments and biological substances; Z91.040 Latex allergy status; W18.30XA Fall on same level, unspecified, initial encounter
CPT/HCPCS: 36415; 71045; 73620; 80048; 80053; 83735; 84484; 85025; 93005; 93010; 93246; 94762; 96374; 97116; 97162; 97530; 99285-25; A9270; G0378; J2405

== ENCOUNTER 2024-12-07 01:25 | Emergency (ER) | payer MEDICARE, OTHER ==
[~2024-12-07] VITALS: Ht 162.6 cm; Wt 70.3 kg
[~2024-12-07 01:25] MED LIST changes: +AZELASTINE137 MCG/06; +FAMO20 PO
[2024-12-07 01:32] VITALS: BP 125/72
[2024-12-07 02:24] LABS: BASOPHILS ABSOLUTE AUTO 0.04 K/mm3 (0.00-0.23); BASOPHILS PERCENT AUTO 1 % (0-2); EOSINOPHILS ABSOLUTE AUTO 0.31 K/mm3 (0.00-0.68); EOSINOPHILS PERCENT AUTO 5 % (0-6); Hematocrit 42.8 % (33.0-51.0); Hemoglobin 14.1 g/dL (11.5-16.0); IMMATURE GRAN ABSOLUTE AUTO 0.04 K/mm3 (0.00-0.10); IMMATURE GRAN PERCENT AUTO 1 % (0-1); LYMPHOCYTES ABSOLUTE AUTO 2.35 K/mm3 (0.84-5.20); LYMPHOCYTES PERCENT AUTO 37 % (21-46); MONOCYTES ABSOLUTE AUTO 0.71 K/mm3 (0.16-1.47); MONOCYTES PERCENT AUTO 11 % (4-13); Mean Corpuscular HGB 32.8 pg (26.0-34.0); Mean Corpuscular HGB Conc 32.9 g/dL (31.5-36.5); Mean Corpuscular Volume 100 fL (80-100); Mean Platelet Volume 10.2 fL (9.1-12.4); NEUTROPHILS ABSOLUTE AUTO 2.98 K/mm3 (1.96-9.15); NEUTROPHILS PERCENT AUTO 47 % (41-73); Platelet Count 192 K/mm3 (150-400); RDW Coefficient Variation 12.9 % (11.7-14.2); RDW Standard Deviation 47.1 fL (35.1-46.3); White Blood Cell Count 6.43 K/mm3 (4.00-11.30)
[2024-12-07 02:33] LABS: Albumin, Blood 3.4 g/dL (3.4-5.0); Bilirubin, Total 0.3 mg/dL (0.1-1.0); Bun/Creatinine Ratio 32.4 (12.0-20.0); Calcium, Blood 8.3 mg/dL (8.5-10.1); Creatinine, Blood 0.59 mg/dL (0.40-1.00); Globulin, Blood 3.3 g/dL (2.2-4.0); Potassium, Blood 4.4 mmol/L (3.5-5.5); Total Protein, Blood 6.7 g/dL (6.4-8.2)
== END 2024-12-07 05:48 | disposition home or self-care (01) ==
LOC: ER 01:25
PROVIDERS: Emergency Medicine
DX: M53.3 Sacrococcygeal disorders, not elsewhere classified (principal); J45.909 Unspecified asthma, uncomplicated; Z87.891 Personal history of nicotine dependence; Z79.899 Other long term (current) drug therapy; Z88.1 Allergy status to other antibiotic agents; Z88.0 Allergy status to penicillin; Z91.041 Radiographic dye allergy status; Z88.2 Allergy status to sulfonamides; Z88.6 Allergy status to analgesic agent; Z88.5 Allergy status to narcotic agent; Z88.8 Allergy status to other drugs, medicaments and biological substances
CPT/HCPCS: 80053; 85025; 99284

== ENCOUNTER 2024-12-07 09:02 | Emergency (ER) | payer MEDICARE, OTHER ==
[~2024-12-07] VITALS: Ht 165.1 cm; Wt 68.0 kg
[2024-12-07 09:05] VITALS: BP 116/80
== END 2024-12-07 09:15 | disposition home or self-care (01) ==
LOC: ER 09:02
DX: M79.621 Pain in right upper arm (principal); M25.511 Pain in right shoulder; Z88.0 Allergy status to penicillin; Z88.5 Allergy status to narcotic agent; Z88.2 Allergy status to sulfonamides; Z88.1 Allergy status to other antibiotic agents; J45.909 Unspecified asthma, uncomplicated; Z90.49 Acquired absence of other specified parts of digestive tract; Z87.891 Personal history of nicotine dependence; Z59.89 Other problems related to housing and economic circumstances; M53.3 Sacrococcygeal disorders, not elsewhere classified; Z91.041 Radiographic dye allergy status; Z88.6 Allergy status to analgesic agent; Z88.8 Allergy status to other drugs, medicaments and biological substances
CPT/HCPCS: 80053; 85025; 99283; 99284

== ENCOUNTER → 2025-01-19 | Outpatient (CLI) | payer MEDICARE, OTHER ==
[~2025-01-19] MED LIST changes: +CEFP200 PO
[2025-01-19 17:13] LABS: BASOPHILS ABSOLUTE AUTO 0.01 K/mm3 (0.00-0.23); BASOPHILS PERCENT AUTO 0 % (0-2); EOSINOPHILS ABSOLUTE AUTO 0.21 K/mm3 (0.00-0.68); EOSINOPHILS PERCENT AUTO 4 % (0-6); Hematocrit 41.8 % (33.0-51.0); Hemoglobin 14.0 g/dL (11.5-16.0); IMMATURE GRAN ABSOLUTE AUTO 0.02 K/mm3 (0.00-0.10); IMMATURE GRAN PERCENT AUTO 0 % (0-1); LYMPHOCYTES ABSOLUTE AUTO 2.23 K/mm3 (0.84-5.20); LYMPHOCYTES PERCENT AUTO 39 % (21-46); MONOCYTES ABSOLUTE AUTO 0.46 K/mm3 (0.16-1.47); MONOCYTES PERCENT AUTO 8 % (4-13); Mean Corpuscular HGB Conc 33.5 g/dL (31.5-36.5); Mean Corpuscular Volume 97 fL (80-100); NEUTROPHILS ABSOLUTE AUTO 2.78 K/mm3 (1.96-9.15); NEUTROPHILS PERCENT AUTO 49 % (41-73); NRBC ABSOLUTE 0.00 K/mm3 (0.00-0.02); NRBC Auto 0.0 /100 WBC (0.0-0.2); Platelet Count 210 K/mm3 (150-400); RDW Coefficient Variation 12.9 % (11.7-14.2); RDW Standard Deviation 45.9 fL (35.1-46.3)
[2025-01-19 17:25] LABS: Alanine Aminotransfer (ALT/SGP 21.0 U/L (12-78); Albumin, Blood 3.6 g/dL (3.4-5.0); Albumin/Globulin Ratio 1.2 (0.8-1.8); Anion Gap 9.0 mmol/L (3-11); Aspartate Aminotrans (AST/SGOT 17.0 U/L (12-37); Bilirubin, Total 0.2 mg/dL (0.1-1.0); Blood Urea Nitrogen 15.0 mg/dL (8-24); CO2, Blood 29.0 mmol/L (21-32); Calcium, Blood 8.3 mg/dL (8.5-10.1); Chloride, Blood 101.0 mmol/L (98-108); Creatinine, Blood 0.52 mg/dL (0.40-1.00); Globulin, Blood 3.1 g/dL (2.2-4.0); Glucose, Blood 90.0 mg/dL (70-99); Potassium, Blood 4.3 mmol/L (3.5-5.5); Sodium, Blood 135.0 mmol/L (136-145); Total Protein, Blood 6.7 g/dL (6.4-8.2)
== END ==
LOC: LAB SHORT 17:10 → LAB 17:10
PROVIDERS: Physician Assistant
DX: R10.9 Unspecified abdominal pain (principal)
CPT/HCPCS: 80053; 85025

== ENCOUNTER 2025-02-21 09:18 | Emergency (ER) | payer MEDICARE, OTHER ==
[~2025-02-21] VITALS: Ht 165.1 cm; Wt 54.4 kg
[2025-02-21 10:18] VITALS: BP 111/84
== END 2025-02-21 11:18 | disposition home or self-care (01) ==
LOC: ER 09:18
DX: S93.502A Unspecified sprain of left great toe, initial encounter (principal); W18.30XA Fall on same level, unspecified, initial encounter; Z88.0 Allergy status to penicillin; Z88.5 Allergy status to narcotic agent; Z88.8 Allergy status to other drugs, medicaments and biological substances; Z88.1 Allergy status to other antibiotic agents; Z79.899 Other long term (current) drug therapy
CPT/HCPCS: 73660; 99283-25